=== PATIENT | female | born 1950 | race Caucasian/White ===

== ENCOUNTER 2023-10-21 11:41 | Emergency (ER) | payer MEDICARE, OTHER, SELFPAY ==
[2023-10-21] VITALS (9 sets, daily range): BP systolic 105–128; BP diastolic 57–75; BMI 24.9
[2023-10-21 12:53] LABS: % Basophils 0.6 % (0-2); % Eosinophils 0.2 % (0-6); % Immature Granulocytes 0.3 % (0-0.5); % Lymphocytes 12.7 % (20.5-51.1); % Monocytes 4.6 % (1.7-9.3); % Neutrophils 81.6 % (42.2-75.2); Absolute Lymphocytes 0.8 10^3/uL (1.2-3.4); Absolute Monocytes 0.3 10^3/uL (0.1-0.6); Absolute Neutrophils 5.2 10^3/uL (1.4-6.5); Hematocrit 41.2 % (37.0-47.0); Hemoglobin 14.1 g/dL (12.0-16.0); Mean Corp Hgb Conc. 34.2 g/dL (33.0-37.0); Mean Corpuscular Hgb 31.5 pg (27.0-31.0); Mean Platelet Volume 8.9 fL (7.4-10.4); Nucleated Red Blood Cells % 0 %; Platelet Count 265 10^3/uL (130-400); Red Blood Cell Count 4.48 10^6/uL (4.20-5.40); Red Cell Dist. Width 13.5 % (11.5-14.5); White Blood Cell Count 6.4 10^3/uL (4.8-10.8)
[2023-10-21 13:02] LABS: ALT (SGPT) 36 U/L (0-35); AST (SGOT) 37 U/L (14-36); Albumin 4.7 g/dl (3.5-5.0); Alkaline Phosphatase 42 U/L (38-126); Blood Urea Nitrogen 11 mg/dl (7-17); Calcium 9.4 mg/dl (8.4-10.2); Carbon Dioxide 23 mmol/L (22-30); Chloride 107 mmol/L (98-107); Estimated Creatinine Clearance 60 ml/min; Glucose 114 mg/dl (70-99); Potassium 4.4 mmol/L (3.5-5.1); Sodium 136 mmol/L (135-145); Total Bilirubin 0.8 mg/dl (0.2-1.3); Total Protein 7.3 g/dl (6.3-8.2); eGFR > 60.00
[2023-10-21 13:08] LABS: Troponin I < 0.012 ng/ml
--- NOTE | 2023-10-21 13:10 | ED.GENMED ---
History of Present Illness
<Korina Rao PA-C - Last Filed: 10/21/23 17:55>
General
Chief Complaint: Heart Rate Problem
Source: patient
Exam Limitations: none
Time Seen by Provider: 10/21/23 12:29
Nursing documentation reviewed up to this point in time: agreed with
Travel History
Have you had any contact with someone who has COVID-19?: No
Do you have any symptoms of coronavirus? Fever > 100 degrees, chills, cough, shortness of breath, sore throat, loss of taste or smell, muscle aches, or headache?: No
History of Present Illness
History of Present Illness:
Patient is a 72 y.o female w/ hx HTN, HLD, paroxysmal atrial fibrillation on Eliquis presenting for evaluation of afib. Patient noticed mild chest heaviness and fluttering around 830 last night and her apple watch showed atrial fibrillation. She
spoke with her outboard motors experimental mechanic, Dr. Woods, who recommended to take one of her diltiazem 120mg. This morning, she remained in atrial fibrillation and her cardiology office recommended one more dose of diltiazem. Afib persisted and she was
instructed to go to emergency department. Her rate has been controlled since onset yesterday evening. Patient currently is asymptomatic - denies chest pain, shortness of breath, dizziness, lightheadedness, vision changes, or headache.
She is compliant with eliquis - does not miss doses.
She has a prescription for diltiazem 120mg that she takes only as needed per outboard motors experimental mechanic orders.
Past History
<Korina Rao PA-C - Last Filed: 10/21/23 17:55>
Past History
ED Past Medical History: HTN and Hypercholesterolemia
ED Past Surgical History: Orthopedic (Knee surgery) and Other (cataracts)
Social History
Tobacco: Former smoker
Alcohol: Occasional
Personal:
Living: with family
Phy Exam
<Korina Rao PA-C - Last Filed: 10/21/23 17:55>
Physical Exam
Physical Exam:
General: Well appearing and non-toxic, vital signs reviewed- patient afebrile
HEENT: Atraumatic, normocephalic; pupils equal round reactive to light bilaterally, extraocular muscle intact bilaterally, protecting airway
Neck: appears supple, no jugular venous distention
CV: Regular rate, irregular rhythm, no evidence of cyanosis
Resp: No evidence of respiratory distress, lungs clear no accessory muscle use
Abd: Non-distended
Extremities: No deformities, no evidence of cyanosis or edema
Neuro: alert and oriented to person place time, speech normal, no focal motor deficits, no focal neurologic deficits
Psych: Normal affect
Skin: Intact, no rashes
Course
<Korina Rao PA-C - Last Filed: 10/21/23 17:55>
Orders/Labs/Results
Orders:
Orders
10/21/23 11:52
EKG [Electrocardiogram (*1)] Urgent
Reason for Study: Chest Pain
EKG- Treatment ONCE
10/21/23 12:35
CMP [Comprehensive Metabolic Panel] Urgent
Complete Blood Count/With Diff Urgent
PT/INR [Prothrombin Time] Urgent
PTT Urgent
Troponin I Urgent
10/21/23 13:09
0.9% Sodium Chloride 1000 ml [Nss] 1,000 ml IV BOLUS
Diltiazem HCl [Cardizem] 10 mg IV NOW STA
Abnormal Lab Results
10/21/23
12:35
MCH 31.5 H pg
(27.0-31.0)
Absolute Lymphs (auto) 0.8 L 10^3/uL
(1.2-3.4)
Neutrophils % 81.6 H %
(42.2-75.2)
Lymphocytes % 12.7 L %
(20.5-51.1)
PT 16.0 H Sec
(11.4-14.6)
Glucose 114 H mg/dl
(70-99)
AST 37 H U/L
(14-36)
ALT 36 H U/L
(0-35)
10/21/23 12:35
10/21/23 12:35
Vital Signs
Initial and Last Documented VS:
Initial Vital Signs
Temp Resp BP Pulse Ox
98.3 F 18 128/75 99
10/21/23 11:46 10/21/23 11:46 10/21/23 11:46 10/21/23 11:46
Last Documented Vital Signs
Temp Pulse Resp BP Pulse Ox
98.3 F 73 13 116/67 96
10/21/23 11:46 10/21/23 14:30 10/21/23 14:30 10/21/23 16:09 10/21/23 14:30
<Evan Valenzuela, DO - Last Filed: 10/21/23 13:14>
Orders/Labs/Results
Orders:
Orders
10/21/23 11:52
EKG [Electrocardiogram (*1)] Urgent
Reason for Study: Chest Pain
EKG- Treatment ONCE
10/21/23 12:35
CMP [Comprehensive Metabolic Panel] Urgent
Complete Blood Count/With Diff Urgent
PT/INR [Prothrombin Time] Urgent
PTT Urgent
Troponin I Urgent
10/21/23 13:09
0.9% Sodium Chloride 1000 ml [Nss] 1,000 ml IV BOLUS
Diltiazem HCl [Cardizem] 10 mg IV NOW STA
Abnormal Lab Results
10/21/23
12:35
MCH 31.5 H pg
(27.0-31.0)
Absolute Lymphs (auto) 0.8 L 10^3/uL
(1.2-3.4)
Neutrophils % 81.6 H %
(42.2-75.2)
Lymphocytes % 12.7 L %
(20.5-51.1)
PT 16.0 H Sec
(11.4-14.6)
Glucose 114 H mg/dl
(70-99)
AST 37 H U/L
(14-36)
ALT 36 H U/L
(0-35)
10/21/23 12:35
10/21/23 12:35
Vital Signs
Initial and Last Documented VS:
Initial Vital Signs
Temp Resp BP Pulse Ox
98.3 F 18 128/75 99
10/21/23 11:46 10/21/23 11:46 10/21/23 11:46 10/21/23 11:46
Last Documented Vital Signs
Temp Pulse Resp BP Pulse Ox
98.3 F 73 13 116/67 96
10/21/23 11:46 10/21/23 14:30 10/21/23 14:30 10/21/23 16:09 10/21/23 14:30
<Korina Rao PA-C - Last Filed: 10/21/23 17:55>
MDM/Problems Addressed
Differential Diagnosis Includes:
paroxysmal atrial fibrillation
MDM/Problems Addressed:
Patient is a 72-year-old female with history atrial fibrillation on Eliquis presenting for evaluation of atrial fibrillation. Symptoms started last night when her Apple Watch told her that she was in A-fib. She is currently asymptomatic�no chest
pain, shortness of breath, dizziness, lower leg edema. No prior cardioversion in the past. She is compliant with Eliquis, takes Cardizem as needed per cardiology orders. Patient is hemodynamically stable upon arrival, afebrile. Well-appearing,
rate controlled A-fib. Lungs clear no lower leg edema. EKG on arrival shows rate controlled atrial fibrillation without signs of ischemia. Will get basic labs. Will start IV fluids and give IV bolus of Cardizem. Will reassess
CBC shows no clinically significant abnormalities. CMP without any clinically significant abnormalities. Troponin negative.
Patient remains in rate controlled atrial fibrillation following IV dose of Cardizem. It appears that she has paroxysmal atrial fibrillation and frequently goes in and out of sinus rhythm. She remains asymptomatic and stable emergency department.
No indication for admission. She is stable for discharge with strict return precautions, cardiology follow-up. Stressed importance of compliance with Eliquis. Instructed to take Cardizem daily and follow-up with cardiology. Patient comfortable
this plan. All questions answered.
Chronic conditions affecting care:
Atrial fibrillation, hypertension, hyperlipidemia
Acute Exacerbation and/or Progression of Chronic Illness:
Paroxysmal atrial fibrillation
<Korina Rao PA-C - Last Filed: 10/21/23 17:55>
*Pulse Oximetry
Patient hypoxic: no
*EKG
Interpreted by ED Provider?: Yes
EKG Intrepretation Date: 10/21/23
Interpretation: abnormal
Comparison EKG: changes noted
Heart Rate: 80
Rate: normal
Rhythm: a-fib
[place]: normal axis
Interval: normal interval
QRS Pattern: normal QRS
Ischemia: no ischemia
*Area Mechanic Interpretation
Rate: normal
Interpretation: abnormal
Heart Rate: 88
Rhythm: a-fib
<Evan Valenzuela DO - Last Filed: 10/21/23 13:14>
*Critical Care Note
Total Time (30-74mins, 75-104mins- exclusive of procedures): Not Applicable
ED Attending Note
<Korina Rao PA-C - Last Filed: 10/21/23 17:55>
-
Portions of this chart may have been created with voice recognition software.� Occasional wrong word or��sound alike� substitutions may have occurred due to the inherent limitations of voice recognition software.
<Evan Valenzuela, DO - Last Filed: 10/21/23 13:14>
ED Attending Note
Patient seen and examined by attending physician: Yes
I performed the substantive portion of visit, reviewed & personally made and approve the management plan that is documented in note by myself or SHRAVAN.: Yes
ED Attending Note:
I have seen and evaluated the patient with a [id number] encounter. I have spoken to the advance practicer provider and involved in the medical history, the physical exam, medical decision making.
Evaluation and management service: agree unless noted differently below.
Results interpretation: agree unless noted differently below.
Focused HPI: 72-year-old female presenting for evaluation of A-fib. She has a history of paroxysmal A-fib and is compliant with Eliquis. Patient took her Cardizem prior to arrival. She takes her Cardizem as needed.
Physical exam: Well-appearing and nontoxic. Rate controlled A-fib. No leg edema
Medical Decision Making: Patient is rate controlled and seems symptom-free. Will give dose of IV Cardizem but she is stable to go home in active A-fib is rate controlled. Upon further questioning, patient states her Apple Watch tells her that she
is in A-fib at 20% the time.
Discharge Plan
Departure
Patient Disposition: Home (Routine Discharge)
Date of Disposition: 10/21/23
Time of Disposition: 15:30
Patient with high blood pressure during this ER visit?: No
Condition: Good
Covid-19: Not Applicable
Discharge Problem:
Paroxysmal atrial fibrillation
Instructions: Atrial Fibrillation (DC)
Prescriptions:
New
diltiazem HCl 120 mg capsule,extended release 24 hr
120 mg PO DAILY Qty: 30 0RF
No Action
multivitamin [TAB A JAE] Tablet
1 tab PO DAILY
atorvastatin 40 mg tablet
40 mg PO DAILY
vitamin E 670 mg (1,000 unit) Capsule
670 mg PO HS
pilocarpine HCl 5 mg tablet
5 mg PO HS
calcium carbonate [Calcium 500] 500 mg calcium (1,250 mg) Tablet
500 mg PO DAILY
magnesium 250 mg Tablet
250 mg PO DAILY
lisinopril 40 mg tablet
40 mg PO HS
biotin 2,500 mcg Capsule
2,500 mcg PO DAILY
diltiazem HCl [Cardizem CD] 120 mg capsule,extended release 24hr
120 mg PO DAILY Qty: 30 0RF
Eliquis 5 mg tablet
5 mg PO BID Qty: 20 0RF
Referrals:
Pankaj Ansari PA-C [Family Provider] -
Maty Woods MD [Active] - Follow up in 1 week
Activity Restrictions/Additional Instructions:
-Return to the emergency department with any chest pain, shortness of breath, lightheadedness/fainting, altered mental status, numbness/tingling, vision changes, worsening in current symptoms, or any other concerns
-As discussed - it is very important that you continue to take your Eliquis as directed. You can start taking your diltiazem prescription once daily. It has been sent to your pharmacy.
-Follow-up with your outboard motors experimental mechanic for further evaluation/management of atrial fibrillation
Interventions
Interventions:
*Risk Screen - Suicide Last Done: 10/21/23 12:20
*General Assessment Last Done: 10/21/23 12:20
*Neglect/Abuse Screening Last Done: 10/21/23 12:20
ED- Fall Risk Assessment Last Done: 10/21/23 12:20
*ED COVID-19 Vaccine History Last Done: 10/21/23 11:46
*Nursing Disposition Last Done: 10/21/23 16:09
ED- Cardiac Assessment Last Done: 10/21/23 13:22
ED- Pulmonary Assessment Last Done: 10/21/23 12:20
Discharge Date and Time
Discharge Date/Time: 10/21/23 16:11
[2023-10-21] MEDS: NSS 1000 IV (13:18)
[2023-10-21] MEDS: CARDIZEM 10 MG IV (13:18)
== END 2023-10-21 16:11 | disposition home or self-care (01) ==
LOC: EMR 11:41
PROVIDERS: EMERGENCY PHYSICIAN Student in an Organized Health Care Education/Training Program; FAMILY PHYSICIAN Physician Assistant Medical
DX: I48.0 Paroxysmal atrial fibrillation (principal); I10 Essential (primary) hypertension; E78.5 Hyperlipidemia, unspecified; Z87.891 Personal history of nicotine dependence; Z79.01 Long term (current) use of anticoagulants
CPT/HCPCS: 99284; 96374; 96361; 80053; 84484; 85025; 85610; 85730; 93005

== ENCOUNTER → 2023-11-17 19:15 | Outpatient (REF) | payer MEDICARE, OTHER, SELFPAY | LOC: MRI 19:15 | PROVIDERS: ATTENDING PHYSICIAN Physician Assistant Medical | DX: N28.1 Cyst of kidney, acquired (principal) | CPT/HCPCS: 74183; A9575 ==

== ENCOUNTER → 2023-11-22 10:25 | Outpatient (REF) | payer MEDICARE, OTHER, SELFPAY ==
[2023-11-22 11:24] LABS: % Basophils 0.7 % (0-2); % Eosinophils 2.2 % (0-6); % Immature Granulocytes 0.2 % (0-0.5); % Monocytes 15.4 % (1.7-9.3); % Neutrophils 59.5 % (42.2-75.2); Absolute Eosinophils 0.1 10^3/uL (0-0.7); Absolute Lymphocytes 0.9 10^3/uL (1.2-3.4); Absolute Monocytes 0.6 10^3/uL (0.1-0.6); Absolute Neutrophils 2.4 10^3/uL (1.4-6.5); Hematocrit 40.1 % (37.0-47.0); Hemoglobin 13.2 g/dL (12.0-16.0); Mean Corp Hgb Conc. 32.9 g/dL (33.0-37.0); Mean Corpuscular Volume 94.1 fL (81.0-99.0); Mean Platelet Volume 8.7 fL (7.4-10.4); Nucleated Red Blood Cells % 0 %; Platelet Count 264 10^3/uL (130-400); Red Blood Cell Count 4.26 10^6/uL (4.20-5.40); Red Cell Dist. Width 12.7 % (11.5-14.5); White Blood Cell Count 4.1 10^3/uL (4.8-10.8)
[2023-11-22 11:59] LABS: ALT (SGPT) 29 U/L (0-35); AST (SGOT) 30 U/L (14-36); Albumin 4.6 g/dl (3.5-5.0); Alkaline Phosphatase 35 U/L (38-126); Blood Urea Nitrogen 14 mg/dl (7-17); Carbon Dioxide 30 mmol/L (22-30); Chloride 98 mmol/L (98-107); Glucose 90 mg/dl (70-99); Potassium 4.5 mmol/L (3.5-5.1); Sodium 135 mmol/L (135-145); Total Bilirubin 0.7 mg/dl (0.2-1.3); Total Protein 6.9 g/dl (6.3-8.2); eGFR > 60.00
== END ==
LOC: REG 10:25
PROVIDERS: ATTENDING PHYSICIAN Physician Assistant Medical
DX: N28.1 Cyst of kidney, acquired (principal); M54.9 Dorsalgia, unspecified; K21.9 Gastro-esophageal reflux disease without esophagitis
CPT/HCPCS: 36415; 80053; 85025

== ENCOUNTER → 2024-02-10 11:14 | Outpatient (REF) | payer MEDICARE, OTHER, SELFPAY ==
[2024-02-10 12:29] LABS: % Basophils 0.5 % (0-2); % Eosinophils 1.6 % (0-6); % Immature Granulocytes 0.3 % (0-0.5); % Lymphocytes 17.8 % (20.5-51.1); % Monocytes 9.8 % (1.7-9.3); Absolute Eosinophils 0.1 10^3/uL (0-0.7); Absolute Lymphocytes 1.1 10^3/uL (1.2-3.4); Absolute Monocytes 0.6 10^3/uL (0.1-0.6); Absolute Neutrophils 4.4 10^3/uL (1.4-6.5); Hematocrit 38.3 % (37.0-47.0); Hemoglobin 12.5 g/dL (12.0-16.0); Mean Corp Hgb Conc. 32.6 g/dL (33.0-37.0); Mean Corpuscular Hgb 31.1 pg (27.0-31.0); Mean Corpuscular Volume 95.3 fL (81.0-99.0); Mean Platelet Volume 8.8 fL (7.4-10.4); Nucleated Red Blood Cells % 0 %; Platelet Count 239 10^3/uL (130-400); Red Blood Cell Count 4.02 10^6/uL (4.20-5.40); Red Cell Dist. Width 12.7 % (11.5-14.5); White Blood Cell Count 6.2 10^3/uL (4.8-10.8)
[2024-02-10 12:35] LABS: ALT (SGPT) 30 U/L (0-35); AST (SGOT) 30 U/L (14-36); Albumin 4.4 g/dl (3.5-5.0); Alkaline Phosphatase 33 U/L (38-126); Blood Urea Nitrogen 13 mg/dl (7-17); Calcium 9.6 mg/dl (8.4-10.2); Carbon Dioxide 28 mmol/L (22-30); Chloride 104 mmol/L (98-107); Glucose 88 mg/dl (70-99); HDL Cholesterol 103 mg/dl; LDL Cholesterol, Calculated 67 mg/dl; Potassium 4.4 mmol/L (3.5-5.1); Sodium 138 mmol/L (135-145); Total Bilirubin 0.5 mg/dl (0.2-1.3); Total Cholesterol 179 mg/dl (50-199); Total Protein 6.6 g/dl (6.3-8.2); Triglyceride 47 mg/dl (10-149); Very Low Density Lipoprotein 9 mg/dl (0-30); eGFR > 60.00
[2024-02-10 12:38] LABS: C-Reactive Protein < 5.00 mg/L (0.0-10.00)
[2024-02-10 12:55] LABS: Vitamin D, 25-OH*** 73.8 ng/mL (30-80)
[2024-02-10 13:09] LABS: TSH 1.36 uIU/ml (0.47-4.68)
[2024-02-10 13:11] LABS: Glycohemoglobin (HgbA1c) 5.5 % (4.0-5.6)
== END ==
LOC: REG 11:14
PROVIDERS: ATTENDING PHYSICIAN Internal Medicine Rheumatology; FAMILY PHYSICIAN Physician Assistant Medical
DX: E55.9 Vitamin D deficiency, unspecified (principal); I73.00 Raynaud's syndrome without gangrene; M19.041 Primary osteoarthritis, right hand; M35.00 Sjogren syndrome, unspecified; M72.0 Palmar fascial fibromatosis [Dupuytren]; M81.0 Age-related osteoporosis without current pathological fracture; Z79.899 Other long term (current) drug therapy; R73.01 Impaired fasting glucose; E78.2 Mixed hyperlipidemia; E07.9 Disorder of thyroid, unspecified; Z00.00 Encounter for general adult medical examination without abnormal findings
CPT/HCPCS: 36415; 80053; 80061; 82306; 83036; 84443; 85025; 86140

== ENCOUNTER → 2024-03-21 12:33 | Outpatient (REF) | payer MEDICARE, OTHER, SELFPAY | LOC: HWRCS 12:33 | PROVIDERS: ATTENDING PHYSICIAN Internal Medicine Cardiovascular Disease; FAMILY PHYSICIAN Physician Assistant Medical | DX: I10 Essential (primary) hypertension (principal); I48.0 Paroxysmal atrial fibrillation | CPT/HCPCS: 93306 ==

== ENCOUNTER → 2024-04-16 09:49 | Outpatient (REF) | payer MEDICARE, OTHER, SELFPAY | LOC: RAD 09:49 | PROVIDERS: ATTENDING PHYSICIAN Physician Assistant | DX: G89.29 Other chronic pain (principal); M25.561 Pain in right knee | CPT/HCPCS: 73564 ==

== ENCOUNTER → 2024-04-18 13:31 | Outpatient (REF) | payer MEDICARE, OTHER, SELFPAY | LOC: RAD 13:31 | PROVIDERS: ATTENDING PHYSICIAN Physician Assistant Medical; OTHER PHYSICIAN Internal Medicine Rheumatology | DX: I10 Essential (primary) hypertension (principal) | CPT/HCPCS: 72050 ==

== ENCOUNTER 2024-05-09 22:57 | Inpatient (IN) | payer MEDICARE, OTHER, SELFPAY ==
[2024-05-09] VITALS (23 sets, daily range): BP systolic 99–173; BP diastolic 52–89; BMI 26.2
[2024-05-09] MEDS: NSS 500 IV (09:33)
[2024-05-09 12:30] LABS: ACT-LR - POC 295 Seconds (116-155)
[2024-05-09 12:53] LABS: ACT-LR - POC 369 Seconds (116-155)
[2024-05-09 13:08] LABS: ACT-LR - POC 276 Seconds (116-155)
[2024-05-09 14:14] LABS: ACT-LR - POC 139 Seconds (116-155)
[2024-05-09 14:48] LABS: Hematocrit 29.3 % (37.0-47.0); Hemoglobin 10.2 g/dL (12.0-16.0); Mean Corp Hgb Conc. 34.8 g/dL (33.0-37.0); Mean Corpuscular Hgb 31.1 pg (27.0-31.0); Mean Corpuscular Volume 89.3 fL (81.0-99.0); Mean Platelet Volume 8.6 fL (7.4-10.4); Platelet Count 189 10^3/uL (130-400); Red Blood Cell Count 3.28 10^6/uL (4.20-5.40); Red Cell Dist. Width 12.6 % (11.5-14.5); White Blood Cell Count 10.1 10^3/uL (4.8-10.8)
[2024-05-09 15:09] LABS: ACT-LR - POC > 397 Seconds (116-155)
--- NOTE | 2024-05-09 15:28 | ITS.CL.ABL ---
Addendum entered and electronically signed by Floyd Woods MD 05/24/24 12:20:
Correcting date of service to May 09, 2024
Addendum entered and electronically signed by Floyd Woods MD 05/09/24 18:03:
Note that with continuous intracardiac echocardiogram there is no pericardial effusion noted until after the ablation catheter is removed from the left atrium and not until approximately 10 minutes later during mapping of the left atrium with the
multipolar grid catheter is pericardial effusion first observed and in the interim, there is movement of the decapolar catheter from the right atrium to the SVC for phrenic nerve pacing and then back to the right atrium. This movement of the
decapolar catheter required several attempts to successfully remove the catheter from the right atrium to the SVC and then the right subclavian vein. The pericardial effusion then was first observed and observed to grow from trace to small to
moderate over a short period of time. This is consistent with myocardial injury leading to pericardial effusion occurring sometime after the ablation catheter was removed from the body. Thereafter, traumatic injury likely occurred from the
decapolar catheter and less likely from the sheath or the grid mapping catheter.
Original Note:
Ribbon Cutter - Ablation
Ablation
Procedure Report:
ELECTROPHYSIOLOGIC STUDY AND POSSIBLE ABLATION
DATE: May 09, 2021
Primary Care Provider: Pankaj Ansari PA-C
Primary Animal Caretaker: Dr Maty Woods
INDICATION:
Symptomatic Atrial Fibrillation.
Paroxysmal
HISTORY: See H and P.
Symptomatic AF, poorly controlled with attempted medical therapy
HAS-BLED: 1
Age
CHADSVASc: 3
HTN
Age
F Gender
PRESENTING RHYTHM: SR
HISTORY: See H and P.
Symptomatic AF, poorly controlled with attempted medical therapy.
ANTICOAGULATION: Eliquis
'TIME-OUT': called and confirmed.
SEDATION/ANESTHESIA: provided via the anesthesia department using general anesthesia.
PROCEDURE:
Ultrasound Guidance performed by md was utilized for femoral venous Vascular Access b/l.
A decapolar CS catheter was placed within the CS for mapping and pacing.
The intracardiac ultrasound catheter was positioned in the RA for continuous intracardiac ultrasound imaging.
Heparin bolus and infusion to target ACT at 300 -350 seconds was administered. Transseptal puncture was performed. This entailed advancing a sheath with dilator (13 Fr Agilis) into the superior vena cava and withdrawing both (monitoring
intracardiac ultrasound, fluoroscopy and tip pressure) with the tip oriented toward the atrial septum. The fossa ovalis was engaged (indicated by sudden displacement of the sheath tip as well as tenting of the fossa seen on intracardiac
ultrasound). Transseptal puncture required 1 pass with the Brockenbrough needle. Left atrial catheter position was confirmed by echocardiographic imaging, pressure monitoring (LA mean pressure 6 mm Hg) and fluoroscopy. The sheath was advanced over
the dilator and positioned in the left atrium.
The multipolar mapping catheter was initially positioned through the transseptal sheath for high density mapping.
Geometry and voltage mapping was performed using the Lukkin multipolar grid catheter. Navex was utilized for three-dimensional electroanatomical mapping.
A 3-D map was created using Navex. A 3-D reconstructed CT image was compared to the 3-D Navex map to assist in anatomic evaluation, mapping and ablation.
There are 4 distinct pulmonary veins, LSPV, LIPV, RSPV, RIPV.
Indelsul PFA catheter and system was used for cardiac ablation as part of the Volt CATHY trial. Catheter positioning was guided and confirmed using both I.C.E. and fluoroscopy.
PV isolation approach was used to electrically isolate each PV ostia as specified in the volt trial.
The ablation catheter was withdrawn from the left atrium and the multipolar Davila grid catheter was substituted through the Agilis sheath into the left atrium.
Remapping with the Davila multipolar grid catheter found that all PVPs were eliminated at each vein demonstrating entrance block. Pacing from the multipolar mapping catheter around the the circumference of the ostia was performed at 10 ma and 2.0
msec output to assess for exit block. This demonstrated electrical isolation at each of the pulmonary vein ostia.
Entrance and exit block was demonstrated at each of the pulmonary veins at least 20 minutes after ablation was completed at any particular pulmonary vein.
Additionally, there is electrical isolation across the roof of the left atrium, an area which very closely approximates the antrums of the left superior and right superior pulmonary veins. Roof isolation/superior posterior wall of the left atrium
isolation was not intended and is likely a manifestation of its proximity to the antrums of the left superior and right superior pulmonary veins.
While waiting for the 20-minute post ablation time to elapse at the right sided pulmonary veins, the decapolar catheter was moved to the right subclavian vein where pacing demonstrated capture of the phrenic nerve with diaphragmatic stimulation
unchanged from the preablation state.
While continuing the waiting phase to elapse to allow mapping of the right sided veins post ablation (20 min waiting period), it was noted that there is a trace pericardial effusion around both the right ventricle and the left ventricle, larger
around the right ventricle and right atrium. Continuous intracardiac echocardiogram throughout the case had not previously shown any pericardial effusion and there had been no hemodynamic compromise. Heparin was immediately discontinued. Over the
next several minutes there is growth in the size of the pericardial effusion from trace to mild and then to moderate and while blood pressure was initially stable a drop in blood pressure was then noted her systolic blood pressures had been running
approximately 110 mmHg systolic blood pressures were now 90 to 95 mmHg. At this point 500 cc of normal saline was administered and the time had elapsed to allow completion of mapping/determination of entrance and exit block which was then performed
and this was followed immediately by withdrawal of the left atrial catheter and sheath to the right atrium. 50 mg of protamine IV was administered. Given the increase in size of the pericardial effusion and clinical findings consistent with
tamponade, decision was made to perform pericardiocentesis where a subcostal approach utilizing fluoroscopic as well as echocardiographic imaging was employed to access the pericardial space. A long J wire was advanced and ICE as well as fluoroscopy
confirmed wire course within the pericardial space. Over this wire a dilator was placed and then the 5 fr pig tail drain was positioned. With removal of pericardial fluid, blood pressure improved/normalized. Overall, a total of 510 cc of blood was
removed from the pericardial space with resolution of clinical tamponade and resolution of pericardial effusion from moderate size to trace and this remain at trace as we continue to observe the patient with intracardiac echocardiogram over the next
10 to 15 minutes ensuring stability. The pericardial drain was attached to a Vacutainer for continued vacuum suction. The pericardial drain was secured to the subxiphoid area.
COMPLICATIONS:
Traumatic pericardial tamponade with resolution of tamponade with pericardiocentesis.
RECOMMENDATIONS:
-Maintain pericardial drain to Vacutainer
-If minimal drainage in the morning, will plan to clamp Vacutainer then check echocardiogram a few hours later and if no reaccumulation of pericardial effusion can then pull pericardial drain
-Once pericardial drain is out, we would observe overnight and check echocardiogram the following morning to reassess for stability prior to discharge.
-Once post removal of drain echocardiogram shows stability, we will reinitiate oral anticoagulation with Eliquis 5 mg twice daily (I anticipate this will be Friday 05/11)
-She is having some discomfort related to the pericardial drain, will initiate ibuprofen 600 mg p.o. every 8 hours as well as GI prophylaxis
We will consider maintaining ibuprofen 600 mg p.o. every 8 hours for one week, then taper to 400 mg Q 8 hrs for 4 more weeks, followed by 200 mg Q8 hrs X 4 weeks, then stop
Maintain GI prophylaxis while on ibuprofen.
SUMMARY:
- Mapping and ablation to isolate the PVs using the Indelsul investigational device pulsed field ablation system
- 3-D Electroanatomical Mapping
- Intracardiac Ultrasound
- Pericardiocentesis of traumatic pericardial tamponade
Post ablation, I discussed today's findings and results including the complication of pericardial tamponade with the patient's and once the patient was fully awake I also discussed today's findings and results including the complication of
pericardial tamponade with her.
Copy to:
Pankaj Ansari PA-C
Dr Maty Woods
[2024-05-09] MEDS: TYLENOL 650 MG PO (15:46)
[2024-05-09] MEDS: DILAUDID 0.5 MG IV (15:46)
--- NOTE | 2024-05-09 16:45 | PTCARENOTE ---
Rec'd report from EP lab & rec'd pt AAOx3 w/no c/o SOB, pt c/o intermittent mid-chest/sternum pain which she rated as 2-3/10. Pt reports that is 'tolerable'. Pt w/R groin site w/fig of [address] & dressing C/D/I. No signs or symptoms of bleeding or
hematoma. Pt advised that she is bedrest until 30 mins after the suture is removed which would be clipped at approx 1830, then she may be OOB around 1900. Pt verbalized understanding the plan. Pt's Vs stable w/HR in the 70's & pt in SR on telemetry
monitoring. Pt's pericardial drain in place w/small amt of old shadowing marked on the mid-chest dressing; Draining sanguineous fluid. Pt w/call lees within reach & plan of care ongoing.
[2024-05-09] MEDS: MOTRIN 600 MG PO (17:48)
[2024-05-09] MEDS: NSS IV (22:49)
[2024-05-09] MEDS: NSS 1000 IV (23:02)
[2024-05-09] MEDS: SALAGEN 5 MG PO (23:09)
[2024-05-10] VITALS (20 sets, daily range): BP systolic 86–111; BP diastolic 48–70; BMI 26.2
[2024-05-10] MEDS: MOTRIN 600 MG PO ×3 (00:15→17:00)
--- NOTE | 2024-05-10 01:31 | PTCARENOTE ---
Rec'd pt. at beginning of shift AAOx3, NSR in the 70's on the monitor. Right groin dressing CDI without drainage/hematoma, pedal pulse palpable. Pericardial drain intact with no new drainage from [id number], drain site discomfort well controlled
with Motrin. Pt. able to ambulate with min. assist x 1, voiding clear yellow urine in bathroom without difficulty. BP at 2228 102/54; pt. due for lisinopril. Dr. Maty Woods notified, order to hold dose obtained and give 1L NSS at 85 ml/hr.
Fluids hung, last BP 96/57. Pt. currently sleeping.
[2024-05-10 04:56] LABS: Hematocrit 29.3 % (37.0-47.0); Mean Corp Hgb Conc. 34.1 g/dL (33.0-37.0); Mean Corpuscular Hgb 31.2 pg (27.0-31.0); Mean Corpuscular Volume 91.3 fL (81.0-99.0); Mean Platelet Volume 8.7 fL (7.4-10.4); Platelet Count 219 10^3/uL (130-400); Red Blood Cell Count 3.21 10^6/uL (4.20-5.40); Red Cell Dist. Width 12.8 % (11.5-14.5); White Blood Cell Count 10.3 10^3/uL (4.8-10.8)
[2024-05-10 05:13] LABS: Blood Urea Nitrogen 12 mg/dl (7-17); Calcium 7.8 mg/dl (8.4-10.2); Carbon Dioxide 23 mmol/L (22-30); Chloride 108 mmol/L (98-107); Estimated Creatinine Clearance 61 ml/min; Glucose 111 mg/dl (70-99); Magnesium 2.1 mg/dl (1.6-2.3); Potassium 4.4 mmol/L (3.5-5.1); Sodium 134 mmol/L (135-145); eGFR > 60.00
[2024-05-10] MEDS: PROTONIX 40 MG PO (08:23)
[2024-05-10] MEDS: LIPITOR 40 MG PO (08:23)
--- NOTE | 2024-05-10 08:45 | W.PN.CARDCBS ---
Addendum entered and electronically signed by Floyd Woods MD 05/10/24 15:09:
Patient seen, interviewed and examined by me.
Well-appearing, no acute distress
Regular rate and rhythm with normal S1 and S2, no S3 no S4. There is a grade 1/6 apical holosystolic murmur and no rubs. PMI is normally placed.
Pericardial drain in place to the Vacutainer
Lungs are clear to auscultation bilaterally without wheezes rales or rhonchi.
Abdomen soft nontender nondistended with normoactive bowel sounds
Extremities show trace pretibial edema bilaterally no clubbing or cyanosis.
Neurologic exam is grossly nonfocal.
Agree with advanced practice professionals assessment and plan as noted below.
There has been minimal drainage since she was moved to the floor from the laboratory. No drainage over the past 4 hours have been noted.
She has been having some mild discomfort when she takes a deep breath which is likely related to irritation from the pericardial drain
Telemetry continues to demonstrate sinus rhythm.
Hemoglobin is relatively stable.
-I have clamped the drain at the Vacutainer
-Will check echocardiogram and if there is no significant pericardial effusion we will plan to have the drain removed
-If the drain can be safely removed today we will plan for initiation of oral anticoagulation tomorrow morning followed by repeat echocardiogram tomorrow afternoon and if still no significant effusion she can then be discharged to home
-She will need echocardiogram on Tuesday.
Original Note:
Today's Communication / Plan
-
Clamp pericardial drain this am
Repeat Echo in 2 hours, remove drain if no reaccumulation of effusion
Holding Eliquis and BP meds for now
Impression / Plan
-
Primary Care Provider: Pankaj Ansari PA-C
Primary Instrumental Teacher: Dr Maty Woods
Impression:
Symptomatic paroxysmal Afib
post PFA ablation VOLT trial 05/09/24
c/b pericardial tamponade with pericardiocentesis
HTN
Hyperlipidemia
Sjogren's syndrome
osteoporosis
SUMMARY:
- Mapping and ablation to isolate the PVs using the [employer] device pulsed field ablation system
- 3-D Electroanatomical Mapping
- Intracardiac Ultrasound
- Pericardiocentesis of traumatic pericardial tamponade
Plan:
post ablation c/b pericardial tamponade post pericardiocentesis
pericardial drain in place total output 685cc
Will clamp this am and repeat Echo in 2 hrs if stable plan to remove drain this afternoon
mild hypotension o/n holding lisinopril and Diltazem
tele SR, no ectopy
moderate pericardial pain - continue Motrin 600mg q8hr x 1 week then taper to 400 mg Q 8 hrs for 4 more weeks, followed by 200 mg Q8 hrs X 4 weeks, then stop
Add PPI while on Motrin taper
Holding Eliquis until after drain removal
continue to monitor closely
Progress Note - Instrumental Teacher
Subjective
Date of Service: May 10, 2024
moderate chest/back pain from drain, difficulty taking deep breaths
Objective
Labs:
05/10/24 03:36
05/10/24 03:36
Labs
Hgb 10.0 g/dL (12.0-16.0) L 05/10/24 03:36
Hct 29.3 % (37.0-47.0) L 05/10/24 03:36
Plt Count 219 10^3/uL (130-400) 05/10/24 03:36
Sodium 134 mmol/L (135-145) L 05/10/24 03:36
Potassium 4.4 mmol/L (3.5-5.1) 05/10/24 03:36
BUN 12 mg/dl (7-17) 05/10/24 03:36
Creatinine 0.7 mg/dL (0.6-1.0) 05/10/24 03:36
Glucose 111 mg/dl (70-99) H 05/10/24 03:36
Vital Signs and I&O:
Vital Signs
Temp Pulse Resp BP Pulse Ox
98 F 72 18 95/57 96
05/10/24 06:45 05/10/24 05:00 05/10/24 06:45 05/10/24 05:00 05/10/24 06:45
Vital Signs
Temp Pulse Resp BP Pulse Ox
98 F 72 18 95/57 96
05/10/24 06:45 05/10/24 05:00 05/10/24 06:45 05/10/24 05:00 05/10/24 06:45
Intake & Output
05/08/24 05/09/24 05/10/24 05/11/24
06:59 06:59 06:59 06:59
Intake Total 4300 / 4300
Output Total 685 / 685
Balance 3615 / 3615
Physical Exam
Physical Exam
NAD, AOX3
S1, S2, RRR
diminished b/l bases and fine crackles
SNTND bsx4
R fem site c/d/i soft, no HT
Pericardial drain with dark red drainage, site stable
--- NOTE | 2024-05-10 09:49 | CM ---
Reviewed chart. Met with Mrs. Lopez to review discharge plans. She states prior to admission she resides with her spouse in a two story home with two steps to enter. She states she has a full flight of steps to get to bedroom/full bathroom. She
states he has a powder room on the first floor. She states prior to admission she was independent with ambulation and adls. She states she does not have any DME in the home. She states she has a prescription plan and uses [facility]. Medical
work-up in progress. The discharge plan is to return home with her spouse when medically stable.
[2024-05-10] MEDS: ZOFRAN 4 MG IV (12:00)
--- NOTE | 2024-05-10 12:18 | W.PN.UPDATE ---
Update Note
Progress Note Update
Procedure note:
f/u Echo after 2 hours clamped shows trace effusion
pericardial drain removed without difficulty, dry dressing placed (Dr. Mena at bedside)
will repeat echo in am to assess effusion prior to restarting OAC
continue to monitor closely
--- NOTE | 2024-05-10 12:19 | W.PN.UPDATE ---
Update Note
Progress Note Update
Reviewed echocardiogram demonstrating no further pericardial effusion. There was no drainage overnight from the pericardial drain. The pericardial drain was placed to clamp and removed with Valsalva at the bedside after superficial suture was cut.
Patient tolerated the removal well. Plan is for initiation of Eliquis on Tuesday a.m. and an echocardiogram Tuesday evening to clarify discharge planning. There likely will be discharged Tuesday if she is stable. Follow-up echo in the office on
Tuesday.
[2024-05-10] MEDS: MAALOX 30 ML PO (12:33)
--- NOTE | 2024-05-10 12:41 | PTCARENOTE ---
Pt c/o nausea and indigestion. Medicated with Zofran 4 mg IV as ordered, after approx 1/2 hr, nausea relieved. Med with Maalox, as ordered, for indigestion.
[2024-05-10] MEDS: TYLENOL 650 MG PO (14:33)
--- NOTE | 2024-05-10 14:39 | PTCARENOTE ---
Pt c/o mild discomfort at previous pericardial drain site, Rated 1-2/10, med with Tylenol 650 mg po as ordered.
--- NOTE | 2024-05-10 15:43 | PTCARENOTE ---
Pt reports relief from pain after given Tylenol.
--- NOTE | 2024-05-10 19:20 | PTCARENOTE ---
Pt. received from previous shift. Pt. seen sitting upright in bed with no pain at this time. Stating she feels 'better than last night'. VS WNL. Tele reading NSR with PVCs. No complaints at this time. Continuing to monitor pt.
[2024-05-10] MEDS: SALAGEN 5 MG PO (22:06)
[2024-05-10] MEDS: PERCOCET 5/325 2 TABLET PO (22:06)
[2024-05-11] MEDS: MOTRIN PO (00:03)
[2024-05-11 03:33] VITALS: BP 98/55
[2024-05-11 06:56] VITALS: BP 116/62
[2024-05-11 08:14] LABS: Hematocrit 28.4 % (37.0-47.0); Hemoglobin 9.8 g/dL (12.0-16.0); Mean Corp Hgb Conc. 34.5 g/dL (33.0-37.0); Mean Corpuscular Hgb 31.8 pg (27.0-31.0); Mean Corpuscular Volume 92.2 fL (81.0-99.0); Mean Platelet Volume 8.7 fL (7.4-10.4); Platelet Count 183 10^3/uL (130-400); Red Blood Cell Count 3.08 10^6/uL (4.20-5.40); Red Cell Dist. Width 13.1 % (11.5-14.5); White Blood Cell Count 7.9 10^3/uL (4.8-10.8)
--- NOTE | 2024-05-11 08:30 | PTCARENOTE ---
pt received from previous RN, oriented, in bed. SR on the monitor, HR 70-90s. palpable pulses. RA. pt ambulates independently. voids. R groin c/d/i. pericardial site old drainage, dressing changed by Bouchra Barnes NP. PIV x2. see worklist for VS, I&O,
and assessment.
--- NOTE | 2024-05-11 08:30 | W.PN.CARDCBS ---
Addendum entered and electronically signed by LINDY Ortiz 05/11/24 12:28:
Hbg dropped from 12.7 to 9.8 today d/t acute blood loss from pericardial effusion
Addendum entered and electronically signed by Brandon Mena MD 05/11/24 10:29:
patient seen and examined
agree with LATEX DIPPER note and assessment
agree with LATEX DIPPER plan
feels much better after drain removal pain 10/29
BP improving
Exam:
as per LATEX DIPPER note
Impression:
Symptomatic paroxysmal Afib
post PFA ablation VOLT trial 05/09/24
c/b pericardial tamponade with pericardiocentesis
HTN
Hyperlipidemia
Sjogren's syndrome
osteoporosis
SUMMARY:
- Mapping and ablation to isolate the PVs using the [employer] device pulsed field ablation system
- 3-D Electroanatomical Mapping
- Intracardiac Ultrasound
- Pericardiocentesis of traumatic pericardial tamponade
Plan:
feels much better today, can take a deep breath
tele one brief episode of PAT last evening, asymptomatic
pericardial drain pulled 05/10 and f/u echo trace effusion
Will resume Eliquis this am and repeat Echo this afternoon
If stable will have f/u echo on Tuesday
hypotension improving continue to hold lisinopril, resume Diltazem this afternoon if bp stable
pericardial pain much improved after drain removal - continue Motrin taper
Add PPI while on Motrin taper
oob ambulate, C&DB
poss home later today or tomorrow
Original Note:
Today's Communication / Plan
-
Resume Eliquis, f/u Echo this afternoon
Repeat Echo Tuesday
hold lisinopril, restart diltiazem this afternoon if bp allows
poss home later today or tomorrow
oob ambulate, C&DB
Impression / Plan
-
Primary Care Provider: Pankaj Ansari PA-C
Primary Gullet Slitter: Dr Maty Woods
Impression:
Symptomatic paroxysmal Afib
post PFA ablation VOLT trial 05/09/24
c/b pericardial tamponade with pericardiocentesis
HTN
Hyperlipidemia
Sjogren's syndrome
osteoporosis
SUMMARY:
- Mapping and ablation to isolate the PVs using the [employer] investigational device pulsed field ablation system
- 3-D Electroanatomical Mapping
- Intracardiac Ultrasound
- Pericardiocentesis of traumatic pericardial tamponade
Plan:
feels much better today, can take a deep breath
tele one brief episode of PAT last evening, asymptomatic
pericardial drain pulled 05/10 and f/u echo trace effusion
Will resume Eliquis this am and repeat Echo this afternoon
If stable will have f/u echo on Tuesday
hypotension improving continue to hold lisinopril, resume Diltazem this afternoon if bp stable
pericardial pain much improved after drain removal - continue Motrin taper
Add PPI while on Motrin taper
oob ambulate, C&DB
poss home later today or tomorrow
Progress Note - Gullet Slitter
Subjective
Date of Service: May 11, 2024
no cp, sob
Objective
Labs:
05/11/24 07:49
Labs
Hgb 9.8 g/dL (12.0-16.0) L 05/11/24 07:49
Hct 28.4 % (37.0-47.0) L 05/11/24 07:49
Plt Count 183 10^3/uL (130-400) 05/11/24 07:49
Sodium 134 mmol/L (135-145) L 05/10/24 03:36
Potassium 4.4 mmol/L (3.5-5.1) 05/10/24 03:36
BUN 12 mg/dl (7-17) 08/22/24 03:36
Creatinine 0.7 mg/dL (0.6-1.0) 05/10/24 03:36
Glucose 111 mg/dl (70-99) H 05/10/24 03:36
Vital Signs and I&O:
Vital Signs
Temp Pulse Resp BP Pulse Ox
98.7 F 78 16 116/62 93
05/11/24 06:56 05/11/24 07:00 05/11/24 06:56 05/11/24 06:56 05/11/24 06:56
Vital Signs
Temp Pulse Resp BP Pulse Ox
98.7 F 78 16 116/62 93
05/11/24 06:56 05/11/24 07:00 05/11/24 06:56 05/11/24 06:56 05/11/24 06:56
Intake & Output
05/09/24 05/10/24 05/11/24 05/12/24
06:59 06:59 06:59 06:59
Intake Total 4300 / 4300 550 / 550
Output Total 685 / 685 0 / 0
Balance 3615 / 3615 550 / 550
Physical Exam
Physical Exam
NAD, AOX3
S1, s2, RRR
fine bibasilar rales
SNTND bsx4
R fem site c/d/i, soft
subxiphoid dressing saturated with serous drainage, dressing changed
[2024-05-11 08:49] LABS: Blood Urea Nitrogen 14 mg/dl (7-17); Calcium 7.9 mg/dl (8.4-10.2); Carbon Dioxide 23 mmol/L (22-30); Chloride 105 mmol/L (98-107); Estimated Creatinine Clearance 61 ml/min; Glucose 105 mg/dl (70-99); Potassium 4.2 mmol/L (3.5-5.1); Sodium 136 mmol/L (135-145); eGFR > 60.00
[2024-05-11] MEDS: PROTONIX 40 MG PO (08:53)
[2024-05-11] MEDS: LIPITOR 40 MG PO (08:53)
[2024-05-11] MEDS: ELIQUIS 5 MG PO (08:54)
[2024-05-11] MEDS: MOTRIN 600 MG PO (08:54)
--- NOTE | 2024-05-11 10:53 | PN.CDI ---
CDI
- -
CDI:
Physician Documentation Request
Admit Date: 05/09/24 22:57
Dear Gabriela Barnes,
Patient was admitted for PVI due to PAF.
During procedure patient underwent pericardiocentesis which 510 cc of blood was removed.
Laboratory Tests
05/03/24 05/09/24 05/10/24
13:06 14:36 03:36
Hgb 12.7 10.2 L 10.0 L
05/11/24
07:49
Hgb 9.8 L
Based on the above, could you please provide a diagnosis that supports the above lab abnormalities and additional evaluation/ monitoring:
Acute blood loss anemia
Anemia , other - please specify
Abnormal lab value clinically insignificant
Other
Use of terms such as suspected, likely, concern for, or probable (associated with a specific diagnosis that is being evaluated, monitored, or treated as if it exists) are acceptable and can be coded in the inpatient setting, when documented at the
time of discharge.
Thank you,
Selina Pelaez RN, BSN
CDI Specialist
tiger text
Please use your independent medical judgment in providing your response.
--- NOTE | 2024-05-11 11:00 | CM ---
Reviewed chart. Met with Mrs. Lopez to review discharge plans. She states she is feeling better and is hoping to go home soon. Prior to admission she resides with her spouse in a two story home with two steps to enter. She has a powder room on the
first floor. Prior to admission she was independent with ambulation and adls. She does not have any DME in the home. She states she has a prescription plan and uses [facility]. Medical work-up in progress. The discharge plan is to return
home with her spouse when medically stable.
[2024-05-11 11:10] VITALS: BP 122/64
--- NOTE | 2024-05-11 13:05 | W.DS.TRANS ---
DC Summary - Tile Picker
-
Discharge Instructions:
Sleep Apnea Risk Low
Discharge Diagnosis/Procedures Afib post ablation, pericardiocentesis
Diet Low Cholesterol
Driving Restrictions No driving for 24 hours
Others Tests Follow up Echo on Tuesday @10:30 at [facility]
Instructions:
Stand-Alone Forms: DC Instructions- Cath/EP Lab
Changes to Home Medications: Yes
Discharge Medications:
DC Medications w/original date entered in [place]
apixaban 5 mg tablet (Eliquis) 5 mg PO BID cardiac issues #20 tabs 11/11/22
atorvastatin 40 mg tablet 40 mg PO DAILY 11/11/22
lisinopril 40 mg tablet 40 mg PO HS 11/11/22
magnesium 250 mg tablet 400 mg PO HS 11/11/22
multivitamin 1 tab PO DAILY 11/11/22
pilocarpine HCl 5 mg tablet 5 mg PO HS 11/11/22
vitamin E 670 mg (1,000 unit) capsule 24,000 mg PO HS 11/11/22
diltiazem HCl 120 mg capsule,24 hr,extended release 120 mg PO DAILY #30 caps 10/21/23
Vitamin D3 1 dose PO DIRECTED 05/01/24
denosumab 60 mg/mL subcutaneous syringe (Prolia) 60 mg SC [id number] 05/01/24
zolpidem 5 mg tablet 5 mg PO HS PRN sleep 05/01/24
calcium carbonate 600 mg-vitamin D3 20 mcg (800 unit) chewable tablet (Caltrate 600 plus D) 1 tab PO DAILY 05/09/24
pantoprazole 40 mg tablet,delayed release (Protonix) 40 mg PO DAILY #30 tabs 05/11/24
Home Medication Changes
new to protonix x 30 d
Pending Results: No
--- NOTE | 2024-05-11 13:19 | W.PN.UPDATE ---
Update Note
Progress Note Update
Reviewed echocardiogram from today demonstrating trace anterior pericardial effusion without hemodynamic compromise. The patient has markedly improved inspiratory chest pressure and will have a short taper of Motrin therapy. She is scheduled in
the office for echocardiogram early next week and will continue Eliquis and diltiazem only at discharge with perhaps reinitiation of lisinopril as an outpatient.
--- NOTE | 2024-05-11 14:38 | PTCARENOTE ---
pt discharged home w/ . discharge instructions reviewed w/ patient and . home meds reviewed. pt aware to hold taking lisinopril and to taper Motrin. R groin dressing removed. tele and IVs dc'd. pt dressed self.
== END 2024-05-11 14:52 | disposition home or self-care (01) | DRG 274 ==
LOC: IVU 22:57
PROVIDERS: Nurse Practitioner Adult Health; ADMITTING PHYSICIAN Internal Medicine Cardiovascular Disease; FAMILY PHYSICIAN Physician Assistant Medical
PROC: 0W9D3ZZ Drainage of Pericardial Cavity, Percutaneous Approach (ICD-10-PCS; 2024-05-09)
PROC: 4A023FZ Measurement of Cardiac Rhythm, Percutaneous Approach (ICD-10-PCS; 2024-05-09)
PROC: 02583ZF Destruction of Conduction Mechanism using Irreversible Electroporation, Percutaneous Approach (ICD-10-PCS; 2024-05-09)
PROC: 02K83ZZ Map Conduction Mechanism, Percutaneous Approach (ICD-10-PCS; 2024-05-09)
PROC: 4A0234Z Measurement of Cardiac Electrical Activity, Percutaneous Approach (ICD-10-PCS; 2024-05-09)
DX: I97.89 Other postprocedural complications and disorders of the circulatory system, not elsewhere classified (principal); Z00.6 Encounter for examination for normal comparison and control in clinical research program; D62 Acute posthemorrhagic anemia; I5A Non-ischemic myocardial injury (non-traumatic); I31.4 Cardiac tamponade; I31.39 Other pericardial effusion (noninflammatory); I48.0 Paroxysmal atrial fibrillation; I11.9 Hypertensive heart disease without heart failure; G47.00 Insomnia, unspecified; E78.5 Hyperlipidemia, unspecified; M81.0 Age-related osteoporosis without current pathological fracture; M35.00 Sjogren syndrome, unspecified; Y84.0 Cardiac catheterization as the cause of abnormal reaction of the patient, or of later complication, without mention of misadventure at the time of the procedure; Z79.01 Long term (current) use of anticoagulants; Z79.899 Other long term (current) drug therapy; Z82.49 Family history of ischemic heart disease and other diseases of the circulatory system
CPT/HCPCS: 93308; 33016; 80048; 83735; 85027; 85347; 86900; 86901; 93005; 93656; C1730; C1732; C1766; C1769; C1892; C1894; Q9967

== ENCOUNTER → 2024-05-14 10:08 | Outpatient (REF) | payer MEDICARE, OTHER, SELFPAY | LOC: RCS 10:08 | PROVIDERS: ATTENDING PHYSICIAN Internal Medicine Cardiovascular Disease; FAMILY PHYSICIAN Physician Assistant Medical | DX: I31.39 Other pericardial effusion (noninflammatory) (principal) | CPT/HCPCS: 93308 ==

== ENCOUNTER 2024-05-14 17:51 | Inpatient (IN) | payer MEDICARE, OTHER, SELFPAY ==
[2024-05-14 14:21] VITALS: BP 164/103
[2024-05-14 14:52] LABS: % Basophils 0.6 % (0-2); % Eosinophils 2.5 % (0-6); % Immature Granulocytes 0.3 % (0-0.5); % Lymphocytes 16.7 % (20.5-51.1); % Monocytes 14.6 % (1.7-9.3); % Neutrophils 65.3 % (42.2-75.2); Absolute Eosinophils 0.2 10^3/uL (0-0.7); Absolute Lymphocytes 1.1 10^3/uL (1.2-3.4); Absolute Monocytes 0.9 10^3/uL (0.1-0.6); Absolute Neutrophils 4.2 10^3/uL (1.4-6.5); Hematocrit 32.3 % (37.0-47.0); Hemoglobin 11.4 g/dL (12.0-16.0); Mean Corp Hgb Conc. 35.3 g/dL (33.0-37.0); Mean Corpuscular Hgb 31.3 pg (27.0-31.0); Mean Corpuscular Volume 88.7 fL (81.0-99.0); Mean Platelet Volume 8.1 fL (7.4-10.4); Nucleated Red Blood Cells % 0 %; Platelet Count 300 10^3/uL (130-400); Red Blood Cell Count 3.64 10^6/uL (4.20-5.40); Red Cell Dist. Width 12.3 % (11.5-14.5); White Blood Cell Count 6.5 10^3/uL (4.8-10.8)
[2024-05-14 15:11] LABS: ALT (SGPT) 89 U/L (0-35); AST (SGOT) 51 U/L (14-36); Albumin 4.1 g/dl (3.5-5.0); Alkaline Phosphatase 78 U/L (38-126); Blood Urea Nitrogen 10 mg/dl (7-17); Calcium 10.1 mg/dl (8.4-10.2); Carbon Dioxide 26 mmol/L (22-30); Chloride 105 mmol/L (98-107); Glucose 113 mg/dl (70-99); Potassium 3.9 mmol/L (3.5-5.1); Sodium 141 mmol/L (135-145); Total Bilirubin 0.8 mg/dl (0.2-1.3); Total Protein 6.3 g/dl (6.3-8.2); eGFR > 60.00
--- NOTE | 2024-05-14 15:16 | ED.GENMED ---
History of Present Illness
General
Chief Complaint: Breathing Problem
Time Seen by Provider: 05/14/24 15:06
History of Present Illness
History of Present Illness:
73-year-old female with history of paroxysmal A-fib presents to the emergency department for evaluation of shortness of breath and rapid heart rate beginning this morning. On May 09 she underwent pulsed field ablation by Dr. Woods at this
hospital, procedure was complicated by pericardial effusion with cardiac tamponade requiring pericardiocentesis. Serial echocardiograms showed no recollection of the pericardial effusion and she was discharged 3 days ago. She restarted her Eliquis
in the morning on Tuesday after discharge. She noted this morning that she was more short of breath and when she left the hospital and her heart rate was markedly elevated. Denies any leg swelling. She also notes a 10 pound weight gain since
being admitted to the hospital
Past History
Past History
ED Past Medical History: HTN and Hypercholesterolemia
ED Past Surgical History: Orthopedic (Knee surgery) and Other (cataracts)
Social History
Tobacco: Former smoker
Alcohol: Occasional
Personal:
Living: with family
Review of Systems
Review of Systems
Allergies reviewed?: Yes
All Other Systems: ROS reviewed and negative except as documented in HPI and ROS
Phy Exam
Physical Exam
Physical Exam:
GEN: Well appearing, NAD, WDWN
Eyes: PERRLA, EOMs intact, no scleral icterus
HENT: NCAT, oral mucosa moist
Lungs: Normal respiratory effort, diminished bibasilar breath sounds with faint crackles
Cardiac: Markedly tachycardic and irregular, no obvious murmur
Abdomen: S, NT, ND, NABS, no masses or hepatosplenomegaly
Neuro: AO x 3
MSK: No gross deformity or ecchymosis. No edema. No digital clubbing
Skin: No rashes, petechiae. Normal color, no pallor or jaundice.
Psych: Calm, cooperative, proper hygiene
Scores
Heart Failure Risk
Heart Failure Risk Score: Yes
History of Stroke or TIA: No
History of intubation for respiratory distress: No
Heart rate on ED arrival >/= 110: No
SaO2 <90% on arrival on room air: No
HR >/=110 during 3min walk test (or too ill to perform test): Yes
ECG has acute ischemic changes: Yes
Urea >/=12mmol/L (BUN 33.6mg/dL): No
Serum CO2>/=35mmol/L: No
Troponin I or T elevated to CT Level (0.4mg/dL): Yes
NT-proBNP >/=5,000ng/L (5,000pg/ml): Yes
HF Risk Score: 7
Admission Status: VERY HIGH RISK 69.8% Consider admission to hospital
Course
Orders/Labs/Results
Orders:
Orders
05/14/24 14:24
Electrocardiogram (*1) Urgent
Reason for Study: Shortness of Breath
EKG- Treatment ONCE
05/14/24 14:25
Electrocardiogram (*1) Urgent
Reason for Study: Chest Pain
EKG- Treatment ONCE
05/14/24 14:37
Complete Blood Count/With Diff Urgent
Comprehensive Metabolic Panel Urgent
NT-proBNP Urgent
Comment: ADD ON
Troponin I Urgent
05/14/24 Dinner
Cholesterol Lowering
At Your Request: Full Participation
Cholesterol Lowering: Sodium, 2 Gram
05/14/24 15:16
Add On- LAB Urgent
Tests Added?: BNP
CR Chest - 2 Views Urgent
Comment:
Reason For Exam: SOB
05/14/24 16:13
Propofol [Diprivan] 20 ml .ROUTE .STK-MED
05/14/24 17:07
Furosemide [Lasix] 40 mg IV ONCE ONE
Potassium Chloride [KCl] 20 meq PO NOW STA
05/14/24 17:26
Admit/Transfer Patient As Directed
Co-Sign Provider:
Level of Care: Inpatient admission
Assign to:: Telemetry
Physician / Group: evaristo
Diagnosis: afib with rvr
Reason for Telemetry: Pulmonary Edema
Date to Stop Telemetry: 05/17/24
Time to Stop Telemetry: 11:00
Reason for Hospitalization: afib rvr
Expected length of stay greater than two midnights?: Yes
ELOS- Estimated Length of Stay in days: 2
I certify the patient meets the requirements for IP care: Yes
PRN Pain Medication Management As Directed
May give lesser potent ordered pain med per pt: Yes
preference::
Protocol:: Medication orders for pain may be administered in a
manner that supports deferring to patient preference
when the pt is:
- Requesting an ordered lesser potent pain medication.
Least to most potent pain medications are defined
as: acetaminophen < NSAID < tramadol < opioids
(morphine, oxycodone, hydromorphone).
- Requesting a lesser dose of the same medication IF
ORDERED.
- Requesting a less intrusive route of administration
if both routes are prescribed by the provider (PO <
IV).
05/14/24 17:27
Code Status As Directed
Resuscitation Status: Full Code
05/14/24 18:27
Celecoxib [Celebrex] 200 mg PO DAILYPRN PRN
Famotidine [Pepcid] 20 mg PO BIDPRN PRN
Ibuprofen [Motrin] 200 mg PO Q6HPRN PRN
Metoprolol [Lopressor] 5 mg IV Q6HPRN PRN
Pantoprazole [Protonix] 40 mg PO DAILYPRN PRN
Polyethylene Glycol Powder [Miralax] 17 grams PO DAILYPRN PRN
Zolpidem Tartrate [Ambien] 5 mg PO HSPRN PRN
05/14/24 18:27
CARDIOLOGY CONSULT Routine
Consulting Provider: Floyd Woods
Was physician already notified: Yes
HF DIETARY CONSULT Routine
HF EDUCATOR CONSULT Routine
Comment:
VTE Contraindication Routine
VTE Mechanical Device Contraindication: Medical Contraindication
Pharmocologic Contraindication: Medical Contraindication
Activity As Directed
Activity Level: As Tolerated
Intake/ Output As Directed
Frequency: q12h
Patient Education As Directed
Type: CHF folder
Comment: give on admission. Document in Interdisciplinary Education record
Sleep Apnea Assessment by RN As Directed
Comment:
Physician Instructions:
Vital Signs As Directed
Frequency: Other
Additional Instructions:: Q12 or per unit guidelines if more frequent.
Weight As Directed
Frequency: Daily
Type of Scale: Standing Scale
Comment: Daily morning weight. If unable to stand, use balanced bed scale.
Weight As Directed
Frequency: Once
Type of Scale: Standing Scale
Comment: Upon Admission. If unable to stand, use balanced bed scale.
Pulse Ox/cont/shift [RESP] Routine
Quantity: 1
Special Instructions: Daily pulse oximetry at rest. If greater than 92% at rest also obtain pulse oximetry
while ambulating as tolerated.
05/14/24 19:58
Troponin I Q6H
Comment: at admission & every 6 hours x 2 (3 total), ECG to be done with each level
05/14/24 20:00
Apixaban [Eliquis] 5 mg PO BID
cyclosporine [Cequa] See Dose Instructions BOTH EYES BID
05/14/24 22:00
Calcium Carbonate/Vitamin D3 [Oscal 500 + D] 500 mg PO HS
Lisinopril [Zestril] 40 mg PO HS
Magnesium l-Lactate [Mag-Tab Sr] 84 mg PO HS
Pilocarpine Non-Formulary [Salagen] 5 mg PO HS
vitamin E 2,400 mg PO HS
05/15/24 00:27
Troponin I Q6H
Comment: at admission & every 6 hours x 2 (3 total), ECG to be done with each level
05/15/24 Breakfast
NPO
Allow oral meds: Yes
Allow clear liquids: Sips of Clears
Complete Blood Count/With Diff IN AM
Comprehensive Metabolic Panel IN AM
05/15/24 06:27
Troponin I Q6H
Comment: at admission & every 6 hours x 2 (3 total), ECG to be done with each level
05/15/24 08:00
Atorvastatin [Lipitor] 40 mg PO DAILY
Diltiazem Extended Release [Cardizem Cd] 120 mg PO DAILY
Furosemide [Lasix] 40 mg IV DAILY
Multivitamin [Theragran] 1 tablet PO DAILY
05/16/24 08:00
Cholecalciferol (Vitamin D3) [VITAMIN D3 (cholecalciferol)] 50 mcg PO MoWeFr@0800
05/17/24 11:00
DC Protocol for Telemetry ONCE
Abnormal Lab Results
05/14/24
14:37
RBC 3.64 L 10^6/uL
(4.20-5.40)
Hgb 11.4 L g/dL
(12.0-16.0)
Hct 32.3 L %
(37.0-47.0)
MCH 31.3 H pg
(27.0-31.0)
Absolute Lymphs (auto) 1.1 L 10^3/uL
(1.2-3.4)
Absolute Monos (auto) 0.9 H 10^3/uL
(0.1-0.6)
Lymphocytes % 16.7 L %
(20.5-51.1)
Monocytes % 14.6 H %
(1.7-9.3)
Glucose 113 H mg/dl
(70-99)
AST 51 H U/L
(14-36)
ALT 89 H U/L
(0-35)
Troponin I 0.312 H* ng/ml
05/14/24 14:37
05/14/24 14:37
Vital Signs
Initial and Last Documented VS:
Initial Vital Signs
Temp Pulse Resp BP Pulse Ox
98.4 F 113 22 164/103 96
05/14/24 14:21 05/14/24 14:21 05/14/24 14:21 05/14/24 14:21 05/14/24 14:21
Last Documented Vital Signs
Temp Pulse Resp BP Pulse Ox
98.4 F 130 20 167/103 95
05/14/24 19:00 05/14/24 19:00 05/14/24 19:00 05/14/24 19:00 05/14/24 19:00
MDM/Problems Addressed
MDM/Problems Addressed:
After discussion with on-call cardiology and electrophysiology the decision was made to admit the patient for diuresis due to fluid overload prior to cardioversion. Patient was consented initially for cardioversion however after detailed discussion
we felt it was more beneficial to diurese the patient as likelihood for cardioversion failure is higher in the setting of acute CHF/hypervolemia. Will be admitted to the hospitalist service for further IV diuresis
Comment
Comment:
Initial EKG independently interpreted by me shows rapid atrial fibrillation at a rate of [address]ressions Which are comparable to A-fib EKG from October 2022
*Critical Care Note
Total Time (30-74mins, 75-104mins- exclusive of procedures): Not Applicable
ED Attending Note
-
Portions of this chart may have been created with voice recognition software.� Occasional wrong word or��sound alike� substitutions may have occurred due to the inherent limitations of voice recognition software.
Discharge Plan
Departure
Patient Disposition: Admit
Date of Disposition: 05/14/24
Time of Disposition: 17:09
Admit to: Telemetry
Presentation/result/management discussed w/ accepting MD/DO: Hospitalist
Discharge Problem:
Atrial fibrillation with RVR, Fluid overload
Interventions
Interventions:
*Risk Screen - Suicide Last Done: 05/14/24 14:21
*General Assessment Last Done: 05/14/24 14:21
*Neglect/Abuse Screening Last Done: 05/14/24 14:21
ED- Fall Risk Assessment Last Done: 05/14/24 15:25
*ED COVID-19 Vaccine History Last Done: 05/14/24 15:23
*Nursing Disposition Last Done: 05/14/24 18:26
ED- Cardiac Assessment Last Done: 05/14/24 15:25
ED- Pulmonary Assessment Last Done: 05/14/24 15:25
Discharge Date and Time
Discharge Date/Time: 05/14/24 18:26
[2024-05-14 15:17] LABS: Troponin I 0.312 ng/ml
[2024-05-14 15:23] VITALS: BMI 26.9
[2024-05-14 16:00] VITALS: BP 158/106
[2024-05-14 16:57] LABS: NT-proBNP 1150 pg/ml
[2024-05-14 17:01] VITALS: BP 148/96
[2024-05-14] MEDS: LASIX 40 MG IV (17:25)
[2024-05-14] MEDS: KCL 20 MEQ PO (17:25)
--- NOTE | 2024-05-14 17:34 | HPS.HSE ---
Family Physician
-
Family Physician: Pankaj Ansari PA-C
Chief Complaint
-
shortness of breath
History of Present Illness
73-year-old female past medical history of paroxysmal atrial fibrillation status post ablation, pericardial tamponade status post pericardiocentesis, hypertension, hypercholesterolemia, Sjogren syndrome, osteoporosis, presenting to the emergency
room for shortness of breath and rapid heart rate starting this morning. She had some chest tightness but denies any chest pain. She states that her blood pressure was elevated was told to take a dose of Lasix by her database administration project manager.
On May 09 she underwent pulsed field ablation by Dr. Woods which was complicated by pericardial effusion and cardiac, not requiring pericardiocentesis. He was discharged 3 days ago. She was restarted on Eliquis 2 days ago and noted this
morning she was short of breath and her heart rate was elevated. She denies any lower extremity. She has gained 10 pounds since being admitted to the hospital. She has some mild nonproductive cough. Denies any swelling.
She drinks alcohol few times a week. Denies smoking.
Medical History
Past Medical History
Past Medical History: Reports Other (paroxysmal atrial fibrillation status post ablation, pericardial tamponade status post pericardiocentesis, hypertension, hypercholesterolemia, Sjogren syndrome, osteoporosis,)
Past Surgical History: Reports Other (knee reconstruction, Breast biopsy.)
Social History
Tobacco: Non-smoker
Alcohol: Occasional
Drug: None
Family History
Family History: Not pertinent
Allergies / Home Medications
Allergies reflects when Allergies were last updated in [email or web address].
Home Medications with original date entered in [email or web address]
Allergy/Medication List:
Allergies
Allergy/AdvReac Type Severity Reaction Status Date / Time
doxycycline Allergy Rash Verified 05/14/24 14:19
Home Medications
apixaban 5 mg tablet (Eliquis) 5 mg PO BID cardiac issues #20 tabs 11/11/22
atorvastatin 40 mg tablet 40 mg PO DAILY 11/11/22
lisinopril 40 mg tablet 40 mg PO HS 11/11/22
pilocarpine HCl 5 mg tablet 5 mg PO HS 11/11/22
vitamin E 670 mg (1,000 unit) capsule 2,400 mg PO HS 11/11/22
diltiazem HCl 120 mg capsule,24 hr,extended release 120 mg PO DAILY #30 caps 10/21/23
denosumab 60 mg/mL subcutaneous syringe (Prolia) 60 mg SC [id number] 05/01/24
zolpidem 5 mg tablet 5 mg PO HSPRN PRN sleep 05/01/24
calcium carbonate 600 mg-vitamin D3 20 mcg (800 unit) chewable tablet (Caltrate 600 plus D) 1 tab PO HS 05/09/24
celecoxib 200 mg capsule 200 mg PO DAILYPRN PRN moderate pain 05/14/24
cholecalciferol (vitamin D3) 50 mcg (2,000 unit) tablet (Vitamin D3) 50 mcg PO MOWEFR 05/14/24
cyclosporine 0.09 % eye drops in a dropperette (Cequa) 1 drp BOTH EYES BID 05/14/24
famotidine 20 mg tablet 20 mg PO BIDPRN PRN gerd 05/14/24
ibuprofen 200 mg tablet 200 mg PO Q6HPRN PRN mild pain 05/14/24
magnesium oxide 400 mg PO HS 05/14/24
pantoprazole 40 mg tablet,delayed release (Protonix) 40 mg PO DAILYPRN PRN gerd 05/14/24
polyethylene glycol 3350 17 gram oral powder packet (Miralax) 17 g PO DAILYPRN PRN constipation 05/14/24
therapeutic multivitamin 1 tab PO DAILY 05/14/24
Review of Systems
-
History Source: Patient
A 12 point ROS was completed and negative except as noted: Yes
Constitutional: Reports No Symptoms
EENT: Reports No Symptoms
Respiratory: Reports See HPI
Cardiac: Reports See HPI
Abdomen/GI: Reports No Symptoms
: Reports No Symptoms
Musculoskeletal: Reports No Symptoms
Skin: Reports No Symptoms
Neurological: Reports No Symptoms
Endocrine: Reports No Symptoms
Hematologic/Lymphatic: Reports No Symptoms
Psych: Reports No Symptoms
Physical Exam
Vital Signs
Vital Signs
Temp Pulse Resp BP Pulse Ox
98.4 F 124 18 148/96 95
05/14/24 14:21 05/14/24 17:25 05/14/24 17:15 05/14/24 17:25 05/14/24 17:15
Physical Exam
General: Well Developed, Well Nourished and No Apparent Distress
HEENT: NormoCephalic, Moist mucous membranes and Atraumatic
Respiratory: Clear
Cardiac: S1/S2, Irregular Rhythm and Tachycardia; No Murmur or Rub
GI: Soft, Non Tender, Non Distended and Normal Bowel Sounds; No Organomegaly
Rectal: Deferred by Provider
Musculoskeletal: No Clubbing, No Cyanosis and No Edema
Skin: No Rash
Neuro: Nonfocal/grossly intact
Laboratory Results
-
05/14/24 14:37
05/14/24 14:37
Laboratory Results
Total Bilirubin 0.8 mg/dl (0.2-1.3) 05/14/24 14:37
AST 51 U/L (14-36) H 05/14/24 14:37
ALT 89 U/L (0-35) H 05/14/24 14:37
Alkaline Phosphatase 78 U/L (38-126) 05/14/24 14:37
Troponin I 0.312 ng/ml H* 05/14/24 14:37
Data Reviewed
-
Lab Data: Labs Reviewed by me
Old Records: Reviewed
Impression/Plan
-
IMPRESSION:
PLAN:
# Atrial fibrillation with RVR
# Recent ablation for A-fib complicated by pericardial tamponade status post pericardiocentesis
-Heart rate in 120s
-EKG shows atrial fibrillation with heart rate of 113
-N.p.o. past midnight for cardioversion tomorrow
-Continue Cardizem
-As needed Lopressor for heart rate greater than 150
-Continue Eliquis
# Acute CHF exacerbation secondary to tachycardia
-Cardiac BNP of 1100
-Chest x-ray shows small to moderate bilateral pleural effusions
-Check I's and O's, daily weights
-40 IV Lasix daily
# Non-MN troponin elevation secondary to atrial fibrillation/CHF versus NSTEMI
-EKG shows ST depressions in inferior lateral leads
-Troponin 0.3
-Trend troponins
# Transaminitis secondary to hepatic congestion
-Continue to monitor
Essential hypertension
-Continue lisinopril
Hypercholesterolemia
-Continue statin
Sjogren's syndrome
Osteoporosis
GERD
-Continue Protonix, Pepcid,
Full code
DVT prophylaxis�Eliquis
N.p.o. postmidnight
[2024-05-14 18:37] VITALS: BP 166/99; BMI 26.5
[2024-05-14 19:00] VITALS: BP 167/103
[2024-05-14] MEDS: ELIQUIS 5 MG PO (20:33)
[2024-05-14] MEDS: MOTRIN 200 MG PO (20:33)
[2024-05-14 20:42] LABS: Troponin I 0.289 ng/ml
[2024-05-14 20:49] VITALS: BMI 26.5
[2024-05-14] MEDS: MAG-TAB SR 84 MG PO (22:37)
[2024-05-14] MEDS: OSCAL 500 + D 500 MG PO (22:37)
[2024-05-14] MEDS: ZESTRIL 40 MG PO (22:38)
[2024-05-14] MEDS: SALAGEN 5 MG PO (22:41)
[2024-05-14 23:00] VITALS: BP 118/66
[2024-05-15 02:06] LABS: Troponin I 0.248 ng/ml
[2024-05-15 03:00] VITALS: BP 155/89
[2024-05-15 06:00] VITALS: BMI 25.8
[2024-05-15 06:37] LABS: % Basophils 0.6 % (0-2); % Eosinophils 4.6 % (0-6); % Immature Granulocytes 0.2 % (0-0.5); % Lymphocytes 19.7 % (20.5-51.1); % Monocytes 14.9 % (1.7-9.3); Absolute Eosinophils 0.2 10^3/uL (0-0.7); Absolute Monocytes 0.8 10^3/uL (0.1-0.6); Hematocrit 30.1 % (37.0-47.0); Hemoglobin 10.7 g/dL (12.0-16.0); Mean Corp Hgb Conc. 35.5 g/dL (33.0-37.0); Mean Corpuscular Hgb 31.5 pg (27.0-31.0); Mean Corpuscular Volume 88.5 fL (81.0-99.0); Mean Platelet Volume 8.3 fL (7.4-10.4); Nucleated Red Blood Cells % 0 %; Platelet Count 292 10^3/uL (130-400); Red Cell Dist. Width 12.4 % (11.5-14.5)
[2024-05-15 07:03] LABS: ALT (SGPT) 68 U/L (0-35); AST (SGOT) 34 U/L (14-36); Albumin 3.6 g/dl (3.5-5.0); Alkaline Phosphatase 68 U/L (38-126); Blood Urea Nitrogen 13 mg/dl (7-17); Calcium 9.6 mg/dl (8.4-10.2); Carbon Dioxide 30 mmol/L (22-30); Chloride 103 mmol/L (98-107); Estimated Creatinine Clearance 52 ml/min; Glucose 102 mg/dl (70-99); Potassium 3.7 mmol/L (3.5-5.1); Sodium 142 mmol/L (135-145); Total Bilirubin 0.6 mg/dl (0.2-1.3); Total Protein 5.8 g/dl (6.3-8.2); eGFR > 60.00
[2024-05-15 07:11] LABS: Troponin I 0.255 ng/ml
[2024-05-15 07:20] VITALS: BP 146/89
[2024-05-15] MEDS: LIPITOR 40 MG PO (07:55)
[2024-05-15] MEDS: LASIX 40 MG IV (07:55)
[2024-05-15] MEDS: THERAGRAN 1 TABLET PO (07:55)
[2024-05-15] MEDS: CARDIZEM CD 120 MG PO (07:55)
[2024-05-15] MEDS: ELIQUIS 5 MG PO (07:55)
[2024-05-15 10:51] VITALS: BP 149/79
--- NOTE | 2024-05-15 11:11 | CM ---
Patient seen at bedside with physician at bedside. Patient states that she lives with her in a 2 story home. Patient stated that she has no DME at home and her PCP is Dr. Ansari. Patient stated that [facility] [place] but today
would like any pharmacy needs [facility] [address] in [place]. CM reviewed IMM and signed form placed on chart. Patient stated that she is very hungry and anticipates going home with no needs. CM will continue to follow for discharge planning
needs.
Plan; home with no needs.
--- NOTE | 2024-05-15 11:12 | W.PN.HOSP.TC ---
Addendum entered and electronically signed by Rosalva Garcia MD 05/15/24 13:31:
paroxysmal atrial fibrillation
acute diastolic CHF exacerbation (preserved EF)
Original Note:
Today's Communication/Plan
-
await cards
diet advanced
Assessment / Plan
Assessment / Plan
pt is a 73 year old female
Atrial fibrillation with RVR likely due to volume overload--doing better after lasix--HR now in sinus rhythm (without any other intervention)--Recent ablation for A-fib complicated by pericardial tamponade status post pericardiocentesis--As needed
Lopressor for heart rate greater than 150--Continue Eliquis
Acute CHF exacerbation secondary to tachycardia--Cardiac BNP of 1100--Chest x-ray shows small to moderate bilateral pleural effusions--Check I's and O's, daily weights--40 IV Lasix daily
Non-OR troponin elevation secondary to atrial fibrillation/CHF versus NSTEMI--EKG shows ST depressions in inferior lateral leads--Troponin 0.3 (although elevation might be due to previous cardiac ablation then pericardiocentesis)-Trend troponins
Transaminitis secondary to hepatic congestion--Continue to monitor
Essential hypertension--Continue lisinopril
Hypercholesterolemia--Continue statin
Sjogren's syndrome
Osteoporosis
GERD--Continue Protonix, Pepcid,
code status --Full code
DVT prophylaxis�Eliquis
anticipate d/c later today
Anticipated Discharge: Today
Subjective/Interval History
-
Date of Service: May 15, 2024
pt wants to eat
Objective Data
-
Labs:
Laboratory Results
05/15/24
06:23
WBC 5.0
Hgb 10.7 L
Hct 30.1 L
Plt Count 292
Sodium 142
Potassium 3.7
Chloride 103
Carbon Dioxide 30
BUN 13
Creatinine 0.8
Glucose 102 H
Calcium 9.6
Total Bilirubin 0.6
AST 34
ALT 68 H
Alkaline Phosphatase 68
Vital Signs:
max temp for 24 hours
05/14/24
19:00
Temp 98.4 F
Vital Signs
Temp Pulse Resp BP Pulse Ox
98.0 F 74 17 149/79 97
05/15/24 10:51 05/15/24 10:51 05/15/24 10:51 05/15/24 10:51 05/15/24 10:51
I&O
05/14/24 05/15/24 05/16/24
06:59 06:59 06:59
Intake Total 480 / 480
Balance 480 / 480
Review of Systems
-
All other systems: Reviewed and negative
Physical Exam
-
General: Well Developed, Well Nourished and No Apparent Distress
HEENT: Normocephalic and Atraumatic; Negative Oxygen
Respiratory: Clear to Auscultation; Negative Wheezes or Rhonchi
Cardiac: Regular Rhythm and S1/S2; Negative Murmur
GI: Soft, Nontender, Nondistended and Normal Bowel Sounds
Musculoskeletal: No Clubbing, No Cyanosis and No Edema
Skin: Warm and Dry
Neuro: Awake
Psych: Calm
--- NOTE | 2024-05-15 12:03 | CON.CAR ---
Addendum entered and electronically signed by Pardeep Ibanez MD 05/15/24 14:56:
I saw and examined the patient.
The RETAIL SALESPERSON or PA's note was reviewed and I agree with the note.
Comment: General: Well developed, well nourished in NAD.
Neck: Supple, no JVD, HJR, carotids +2 B/L, no bruits bilaterally.
Heart: Non displaced PMI, RRR, no murmurs, No S3, S4, no rubs.
Lungs: Scattered rhonchi at the bases
Extremities: No clubbing, cyanosis or edema bilaterally.
Neuro: Grossly nonfocal, awake, alert and oriented x3.
Ca has a history of A-fib status post ablation with pericardial effusion and drainage in April 2024 on chronic Eliquis, hypertension, Sjogrens syndrome. She presented with shortness of breath and palpitations. She was felt to be in CHF and
was admitted overnight. She also was in A-fib and spontaneously converted to sinus rhythm. She has lost over 4 pounds since admission and feels well.
Stable cardiology status for discharge. Will discharge on Lasix 40 mg daily. Will arrange follow-up visit. Discussed with primary service
Original Note:
Consultation
Consultation Request
Date/Time Consultation Requested: 05/14/24 at 1827
Date/Time Consultation Performed: 05/15/24 at 1157
Requesting Provider: Dr. Garcia
Performing Provider: Dr. Ibanez
Reason for Consultation: Acute HFpEF, recurrent Afib with RVR
Medical History
-
History of Present Illness:
Patient came to [facility] yesterday with increased SOB and palpitations and cardiology has been consulted for acute HF and recurrent Afib. Patient had a PFA ablation for known paroxysmal Afib on . Procedure complicated by pericardial effusion
that was treated with pericardiocentesis and drain. Patient improved and was discharged to home 05/11/24. Due to hypotension in the hospital her outpatient doses of lisinopril 40 mg daily and Cardizem CD 120 mg daily were held on d/c. Patient then
had an outpatient echo 05/14/24 that showed trivial effusion and BP was up so patient was called and asked to resume her usual doses of lisinopril and Cardizem CD. In the time between the echo and the call from the office however the patient had
increased HR and had also started to think more about a 10 lb weight gain she had noticed since coming home from the hospital. Patient was referred to [facility] and was admitted with acute HF overnight. She was given Lasix 40 mg IV daily and weight is
down at least 4 lbs from admission and patient has symptomatically improved with less SOB and bloating. Patient was not taking a diuretic prior to admission.
PMH:
Recent admission for PFA ablation, pericardial effusion 05/09/24 until 05/11/24
Paroxysmal Afib
s/p PFA ablation VOLT trial 05/09/24
Chronic Eliquis OAC
s/p pericardial effusion with drain 05/09/24, no recurrence on echo 05/14/24
HTN
Hyperlipidemia
Sjogren's syndrome
osteoporosis
Past Medical History
Past Medical History: Other (in HPI)
Past Surgical History: Cardiac (Afib ablation 05/09/24, pericardiocentesis 05/09/24), Gynecological (breast surgery) and Orthopedic
Social History
Tobacco: Non-Smoker
Alcohol: None
Drug: None
Personal:
Living: With Family
Family History
Family History: CAD
Allergies / Home Medications
Allergy/AdvReac Type Severity Reaction Status Date / Time
doxycycline Allergy Rash Verified 05/14/24 14:19
�Medication �Instructions �Recorded �Confirmed �Type
apixaban 5 mg tablet (Eliquis) 5 mg PO BID cardiac issues #20 tabs 11/11/22 05/14/24 Rx
atorvastatin 40 mg tablet 40 mg PO DAILY High Cholesterol 11/11/22 05/14/24 History
lisinopril 40 mg tablet 40 mg PO HS Blood Pressure 11/11/22 05/14/24 History
pilocarpine HCl 5 mg tablet 5 mg PO HS Sjogren syndrome 11/11/22 05/14/24 History
vitamin E 670 mg (1,000 unit) 2,400 mg PO HS Supplement 11/11/22 05/14/24 History
capsule
diltiazem HCl 120 mg capsule,24 120 mg PO DAILY #30 caps 10/21/23 05/14/24 Rx
hr,extended release
denosumab 60 mg/mL subcutaneous 60 mg SC [id number] osteoporosis 05/01/24 05/14/24 History
syringe (Prolia)
zolpidem 5 mg tablet 5 mg PO HSPRN PRN sleep 05/01/24 05/14/24 History
calcium carbonate 600 mg-vitamin 1 tab PO HS Supplement 05/09/24 05/14/24 History
D3 20 mcg (800 unit) chewable
tablet (Caltrate 600 plus D)
celecoxib 200 mg capsule 200 mg PO DAILYPRN PRN moderate 05/14/24 05/14/24 History
pain
cholecalciferol (vitamin D3) 50 50 mcg PO MOWEFR Supplement 05/14/24 05/14/24 History
mcg (2,000 unit) tablet (Vitamin
D3)
cyclosporine 0.09 % eye drops in a 1 drp BOTH EYES BID dry eyes 05/14/24 05/14/24 History
dropperette (Cequa)
famotidine 20 mg tablet 20 mg PO BIDPRN PRN gerd 05/14/24 05/14/24 History
ibuprofen 200 mg tablet 200 mg PO Q6HPRN PRN mild pain 05/14/24 05/14/24 History
magnesium oxide 400 mg PO HS Supplement 05/14/24 05/14/24 History
pantoprazole 40 mg tablet,delayed 40 mg PO DAILYPRN PRN gerd 05/14/24 05/14/24 History
release (Protonix)
polyethylene glycol 3350 17 gram 17 g PO DAILYPRN PRN constipation 05/14/24 05/14/24 History
oral powder packet (Miralax)
therapeutic multivitamin 1 tab PO DAILY Supplement 05/14/24 05/14/24 History
Review of Systems
-
History Source: Patient
All other systems: Negative unless noted
Physical Exam
Vital Signs
Temp Pulse Resp BP Pulse Ox
98.0 F 74 17 149/79 97
05/15/24 10:51 05/15/24 10:51 05/15/24 10:51 05/15/24 10:51 05/15/24 10:51
GEN: NAD. AAOx3
HEENT: EOMI, MMM
LUNGS:97% RA. CTA B/L, no wheezes/rales
CV: Reg, S1/S2, mexican food maker rub, no murmur
ABD: soft, BS+, NT, ND
EXT: No clubbing, cyanosis, lesions or edema B/L
NEURO: Gross non-focal
SKIN: Warm, dry and pink. No rash
Lab Results
05/15/24 06:23
05/15/24 06:23
Troponin I 0.255 ng/ml H* 05/15/24 06:23
Hsu-W-Eqbssiolltd Pept 1150 pg/ml 05/14/24 14:37
Impression / Plan
-
PCP: Pankaj Ansari
Cardiology: Dr. Maty Woods
Impression:
Acute HFpEF
Paroxysmal Afib with RVR spontaneously converting to SR 05/15/24 early AM
Recent admission for PFA ablation, pericardial effusion 05/09/24 until 05/11/24
Paroxysmal Afib
s/p PFA ablation VOLT trial 05/09/24
Chronic Eliquis OAC
s/p pericardial effusion with drain 05/09/24, no recurrence on echo 05/14/24
HTN
Hyperlipidemia
Sjogren's syndrome
osteoporosis
Echo 05/14/2024: EF 60 to 65%, normal RV size and function, trivial pericardial effusion, pleural effusion is present
Plan:
-Patient came to [facility] yesterday with increased SOB and palpitations and cardiology has been consulted for acute HF and recurrent Afib. Patient had a PFA ablation for known paroxysmal Afib on . Procedure complicated by pericardial effusion
that was treated with pericardiocentesis and drain. Patient improved and was discharged to home 05/11/24. Due to hypotension in the hospital her outpatient doses of lisinopril 40 mg daily and Cardizem CD 120 mg daily were held on d/c. Patient then
had an outpatient echo 05/14/24 that showed trivial effusion and BP was up so patient was called and asked to resume her usual doses of lisinopril and Cardizem CD. In the time between the echo and the call from the office however the patient had
increased HR and had also started to think more about a 10 lb weight gain she had noticed since coming home from the hospital. Patient was referred to [facility] and was admitted with acute HF overnight. She was given Lasix 40 mg IV daily and weight is
down at least 4 lbs from admission and patient has symptomatically improved with less SOB and bloating. Patient was not taking a diuretic prior to admission.
-Weight is down at least 4 lbs with Lasix 40 mg IV daily since admission. Patient was not taking a diuretic prior to admission. Agree with Lasix 40 mg PO daily upon d/c to home. Talked with patient that she will likely not need Lasix long-term and
we might reduce dose in future.
-Daily weights explained.
-HF f/u visit scheduled.
-No need to repeat echo from yesterday. There is only a trivial pericardial effusion.
-Afib with RVR on admission and then spontaneously converted with diuresis overnight. Cont Cardizem CD and Eliquis as is.
-Cont usual dose of lisinopril 40 mg daily
-Cont usual dose of Cardizem CD 120 mg daily
-Stable for d/c to home with follow up arranged
--- NOTE | 2024-05-15 16:12 | W.DCSUMMARY ---
Discharge Summary
Discharge Data
Date of Admission: 05/14/24
Date of Discharge: 05/15/24
-
Pending Results: No
Hospital Course
Primary care physician : Pankaj Ansari
Principal Discharge diagnosis : Paroxysmal atrial fibrillation leading to acute diastolic congestive heart failure exacerbation, non myocardial injury troponin elevation secondary to atrial fibrillation
Chronic Discharge diagnosis : Essential hypertension, hyperlipidemia, Sjogren's syndrome, osteoporosis, gastroesophageal reflux disease
Hospital Course : Patient is a 73-year-old female with a history of paroxysmal atrial fibrillation status post ablation complicated by pericardial tamponade needing pericardiocentesis who presented to the emergency room for shortness of breath and
rapid heart rate starting the morning of admission. She had some chest tightness but denied pain. She stated that her blood pressure was elevated and she was told to take a dose of Lasix by her mult au matic operator. She gained 10 pounds since being
admitted to the hospital for her ablation. Patient was admitted.
Problem #1: Paroxysmal atrial fibrillation leading to acute diastolic congestive heart failure exacerbation. Patient was admitted and made n.p.o. with plans for cardioversion. Patient converted on her own back to sinus rhythm without any other
intervention other than IV Lasix. This was likely brought on by volume overload with the 10 pound weight gain during her previous hospital admission. She has been seen by cardiology and cleared for discharge. She will be discharged on 40 mg of
p.o. Lasix daily. She should follow-up with cardiology as an outpatient.
Problem #2: Non myocardial injury troponin elevation secondary to atrial fibrillation. Patient had a cardiac proBNP of 1100. Chest x-ray showed small to moderate bilateral pleural effusions. Troponin was 0.3. This was felt to be a nonmyocardial
injury troponin elevation secondary to the CHF exacerbation due to the tachycardia. Also of note, patient had a previous cardiac ablation followed by a pericardiocentesis which certainly could have given rise to the elevated troponins as well.
Problem #3: All other medical issues. These include Essential hypertension, hyperlipidemia, Sjogren's syndrome, osteoporosis, gastroesophageal reflux disease. These medical issues were stable during her hospitalization. Medications were continued
as able.
Patient is stable for discharge home at this time. If there are any questions regarding this dictation or her hospital stay, please do not hesitate to call. Our office number is [phone].
Discharge Plan
-
Patient Disposition: Home (Routine Discharge)
Discharge Diagnosis/Procedures: Paroxysmal atrial fibrillation with rapid ventricular response likely due to volume overload, acute diastolic congestive heart failure exacerbation, nonmyocardial injury troponin elevation secondary to atrial
fibrillation along with congestive heart failure, transaminitis secondary to hepatic congestion, essential hypertension, hyperlipidemia, Sjogren syndrome, osteoporosis, gastroesophageal reflux disease
Condition: Good
Diet: Low Cholesterol and 2 Gram Sodium
Activity: As tolerated
Driving Restrictions: As prior to admission
Bathing Restrictions: None
Specialty Instructions: Weigh Daily- Call MD for wt gain/loss 3 lbs overnight/5 lbs in 1 week
Instructions: *[facility] Heart Failure Instructions
Referrals:
Pankaj Ansari PA-C [Family Provider] - in less than 1 week
Maty Woods MD [Active] - 05/18/24 12:40 pm (You have an appt to see Dr. Maty Woods's physician store assistant, Dee Dee, at the [place] office on 05/18/24 at 12:40 PM. Please call [phone] if you need to reschedule. )
Prescriptions:
New
furosemide 40 mg tablet
40 mg PO DAILY Qty: 30 0RF
Continued
atorvastatin 40 mg tablet
40 mg PO DAILY
vitamin E 670 mg (1,000 unit) Capsule
2,400 mg PO HS
Rx Instructions:
Pt confirmed that dose is 2,400
pilocarpine HCl 5 mg tablet
5 mg PO HS
lisinopril 40 mg tablet
40 mg PO HS
Eliquis 5 mg tablet
5 mg PO BID Qty: 20 0RF
diltiazem HCl 120 mg capsule,extended release 24 hr
120 mg PO DAILY Qty: 30 0RF
zolpidem 5 mg Tablet
5 mg PO HSPRN PRN (Reason: sleep)
Patient Comments:
05/14/24: last filled 08/02/23 for 90 tablets over 90 days at [facility] pharmacy
Prolia 60 mg/mL Syringe
60 mg SC [id number]
Rx Instructions:
Next dose due 07/2024
Caltrate 600 plus D 600 mg-20 mcg (800 unit) Tablet,Chewable
1 tab PO HS
polyethylene glycol 3350 [Miralax] 17 gram Powder In Packet
17 g PO DAILYPRN PRN (Reason: constipation)
therapeutic multivitamin Tablet
1 tab PO DAILY
famotidine 20 mg Tablet
20 mg PO BIDPRN PRN (Reason: gerd)
cholecalciferol (vitamin D3) [Vitamin D3] 50 mcg (2,000 unit) Tablet
50 mcg PO MOWEFR
magnesium oxide 400 mg magnesium Tablet
400 mg PO HS
Cequa 0.09 % Dropperette
1 drp BOTH EYES BID
pantoprazole [Protonix] 40 mg tablet,delayed release (DR/EC)
40 mg PO DAILYPRN PRN (Reason: gerd)
Discontinued
celecoxib 200 mg Capsule
200 mg PO DAILYPRN PRN (Reason: moderate pain)
ibuprofen 200 mg Tablet
200 mg PO Q6HPRN PRN (Reason: mild pain)
Discharge Orders:
Discharge Patient (As Directed); Ordered 05/15/24
Ordered By: Rosalva Garcia
Discharge Date and Time
Discharge Date/Time: 05/15/24 15:15
Print Language: PERUVIAN
== END 2024-05-15 15:15 | disposition home or self-care (01) | DRG 308 ==
LOC: 3 WEST ACU 17:51
PROVIDERS: Emergency Medicine; ADMITTING PHYSICIAN Hospitalist; ATTENDING PHYSICIAN Internal Medicine; EMERGENCY PHYSICIAN Emergency Medicine; FAMILY PHYSICIAN Physician Assistant Medical; OTHER PHYSICIAN Internal Medicine Cardiovascular Disease
DX: I48.0 Paroxysmal atrial fibrillation (principal); I50.33 Acute on chronic diastolic (congestive) heart failure; I5A Non-ischemic myocardial injury (non-traumatic); J91.8 Pleural effusion in other conditions classified elsewhere; I11.0 Hypertensive heart disease with heart failure; K76.1 Chronic passive congestion of liver; M35.00 Sjogren syndrome, unspecified; E78.00 Pure hypercholesterolemia, unspecified; K21.9 Gastro-esophageal reflux disease without esophagitis; K59.00 Constipation, unspecified; I25.10 Atherosclerotic heart disease of native coronary artery without angina pectoris; M81.0 Age-related osteoporosis without current pathological fracture; Z79.01 Long term (current) use of anticoagulants; Z79.899 Other long term (current) drug therapy; Z86.79 Personal history of other diseases of the circulatory system; Z87.891 Personal history of nicotine dependence; Z88.1 Allergy status to other antibiotic agents
CPT/HCPCS: 93308; 71046; 80053; 83880; 84484; 85025; 93005; 96374; 99285

== ENCOUNTER → 2024-05-22 10:43 | Outpatient (REF) | payer MEDICARE, OTHER, SELFPAY | LOC: RAD 10:43 | PROVIDERS: ATTENDING PHYSICIAN Physician Assistant Medical; FAMILY PHYSICIAN Physician Assistant Medical | DX: J90 Pleural effusion, not elsewhere classified (principal) | CPT/HCPCS: 71046 ==

== ENCOUNTER 2024-05-25 06:45 | Inpatient (IN) | payer MEDICARE, OTHER, SELFPAY ==
[2024-05-24 17:17] VITALS: BP 132/76
--- NOTE | 2024-05-24 18:23 | ED.GENMED ---
History of Present Illness
General
Chief Complaint: Breathing Problem
Source: patient
Exam Limitations: none
Time Seen by Provider: 05/24/24 17:55
History of Present Illness
History of Present Illness:
This is a 73 year old female that comes in with c/o SOB and for admission. States that Dr. Trell Woods sent her in for admission. State that she had a Cardiac ablation on the . States that she had complications as blood filled up in the sac
around her heart. States that she had a chest tube. Then she went home on the . States that she still had fluid in her lungs. Patient had a chest x-ray Tuesday. State that she was in the [facility] office last week and she was given Lasix.
States that she feels like there is this phlegm in her throat and was given Mucinex. States that she is still SOB. States that she can't go up the steps with out being winded and she can't walk from the kitchen to the Dinning room which is about 10
feet and she is SOB. States that her heart rate when she gets up in the morninig is 80-82 and normally she is about 60. States that she has chest heaviness with the SOB. Denies any fever, chills, abd pain, nausea, vomiting, diarrhea, headache,
dizziness, urinary burning.
Past History
Past History
ED Past Medical History: Arrthythmia (Atrial fib), GERD, HTN and Hypercholesterolemia
ED Past Surgical History: Cardiac (Ablation), Orthopedic (Knee surgery right, ) and Other (cataracts, Left breast mass removed Benign, )
Social History
Tobacco: Former smoker
Alcohol: Occasional
Personal:
Living: with family
Review of Systems
Review of Systems
All Other Systems: ROS reviewed and negative except as documented in HPI and ROS
Constitutional: Reports no symptoms; Denies fever or chills
EENT: Reports no symptoms
Respiratory: Reports trouble breathing; Denies cough
Cardiac: Reports chest pain
ABD/GI: Reports no symptoms; Denies abdominal pain, nausea, vomiting or diarrhea
: Reports no symptoms; Denies dysuria, frequency or urgency
Musculoskeletal: Reports no symptoms
Skin: Reports no symptoms
Neurological: Reports no symptoms; Denies dizzy or headache
Psychiatric: Reports no symptoms
Phy Exam
General Physical Exam
General Presentation: no apparent distress
General age: appears stated age
General Skin: warm and dry
General Habitus: elderly
General Mental: alert
General Hydration: appears well hydrated
ENT Exam
ENT Exam: TM's normal, pharynx normal and neck supple
Eye Exam
Eye Exam: EOMI
Cardiovascular Exam
Cardiovascular Exam: regular rate/rhythm, no edema and normal peripheral pulses
Pulmonary Exam
Pulmonary Exam: no respiratory distress, no rales, chest non tender, no crackles, no rhonchi, no wheezing, no cough and decreased breath sounds (Bilaterally at bases, )
Gastrointestinal Exam
Gastrointestinal Exam: normal bowel sounds, non tender, soft, no organomegaly, no pulsatile mass and non distended
Musculoskeletal Exam
Musculoskeletal Exam: full ROM and no edema
Skin Exam
Skin Exam: normal color, warm/dry, no rash and no petechia
Psychiatric Exam
Psychiatric Exam: normal mood/affect
Scores
Heart Failure Risk
Heart Failure Risk Score: Yes
History of Stroke or TIA: No
History of intubation for respiratory distress: No
Heart rate on ED arrival >/= 110: No
SaO2 <90% on arrival on room air: No
HR >/=110 during 3min walk test (or too ill to perform test): No
ECG has acute ischemic changes: No
Urea >/=12mmol/L (BUN 33.6mg/dL): No
Serum CO2>/=35mmol/L: No
Troponin I or T elevated to AK Level (0.4mg/dL): No
NT-proBNP >/=5,000ng/L (5,000pg/ml): No
HF Risk Score: 0
Admission Status: LOW RISK 2.8% Consider discharge to home with f/u visit to PCP/[facility]
Course
Orders/Labs/Results
Orders:
Orders
05/24/24 Dinner
Cholesterol Lowering
At Your Request: Full Participation
Does patient need a safe tray?: No
Reason for opting out of [employer] order writing: Provider Decision
Fluid Restriction: 1200 mL/day (40 oz)
Cholesterol Lowering: Sodium, 2 Gram
05/24/24 17:17
Electrocardiogram (*1) Urgent
Reason for Study: Chest Pain
EKG- Treatment ONCE
05/24/24 18:22
CR Chest - 2 Views Urgent
Comment:
Reason For Exam: SOB
05/24/24 18:42
Complete Blood Count/With Diff Urgent
Comprehensive Metabolic Panel Urgent
NT-proBNP Urgent
Troponin I Urgent
05/24/24 19:17
Consult Cardiology [CARDIOLOGY CONSULT] Urgent
Consulting Provider: Stephanie Abbott
Was physician already notified: Yes
05/24/24 19:55
Prothrombin Time Urgent
05/24/24 20:39
Admit/Transfer Patient As Directed
Co-Sign Provider:
Level of Care: Observation services
Assign to:: Telemetry
Physician / Group: ricci [email or web address]
Diagnosis: dyspnea 2/2 bilat pleural effusions
Reason for Telemetry: Acute Heart Failure
Date to Stop Telemetry: 05/27/24
Time to Stop Telemetry: 11:00
Reason for Hospitalization: dyspnea 2/2 bilat pleural effusions
Code Status As Directed
Resuscitation Status: Full Code
05/24/24 20:49
PRN Pain Medication Management As Directed
May give lesser potent ordered pain med per pt: Yes
preference::
Protocol:: Medication orders for pain may be administered in a
manner that supports deferring to patient preference
when the pt is:
- Requesting an ordered lesser potent pain medication.
Least to most potent pain medications are defined
as: acetaminophen < NSAID < tramadol < opioids
(morphine, oxycodone, hydromorphone).
- Requesting a lesser dose of the same medication IF
ORDERED.
- Requesting a less intrusive route of administration
if both routes are prescribed by the provider (PO <
IV).
05/24/24 20:57
Furosemide [Lasix] 40 mg IV NOW STA
05/24/24 22:23
Acetaminophen [Tylenol] 1,000 mg PO Q6HPRN PRN
Famotidine [Pepcid] 20 mg PO BIDPRN PRN
Flecainide [Tambocor] 50 mg PO Q12
Pantoprazole [Protonix] 40 mg PO DAILYPRN PRN
Pilocarpine Non-Formulary [Salagen] 5 mg PO HS
Polyethylene Glycol Powder [Miralax] 17 grams PO DAILYPRN PRN
Zolpidem Tartrate [Ambien] 5 mg PO HSPRN PRN
vitamin E 2,400 mg PO HS
05/24/24 22:23
[facility] CONSULT Routine
Consulting Provider: Mariano Vogt
Was physician already notified: Yes
Reason for Consult/Procedure: bilat plueral effusions
Acknowledgement that appropriate orders are entered: Yes
VTE Contraindication Routine
VTE Mechanical Device Contraindication: Medical Contraindication
Pharmocologic Contraindication: Medical Contraindication
Comment: pt on eliquis
Acid Fast Culture & Smear Routine
CYRUS Source: Pleural Fluid
Specimen Description:
Comment: post procedure
Body Fluid Amylase Routine
Fluid Source: Pleural
Body Fluid Cell Count Routine
What is the Body Fluid: pleural fluid
Comment: post procedure
Body Fluid Glucose Routine
Fluid Source: Pleural
Body Fluid LDH Routine
Fluid Source: Pleural
Body Fluid Protein Routine
Fluid Source: Pleural
Body Fluid Triglycerides Routine
Fluid Source: Pleural
Body Fluid pH Routine
Fluid Source: Pleural
Fluid Culture with Gram Stain Routine
CYRUS Source: Pleural Fluid
Specimen Description:
Comment: post procedure
Fungus Culture Routine
CYRUS Source: Pleural Fluid
Specimen Description:
Fungus Smear Routine
CYRUS Source: Pleural Fluid
Specimen Description:
Gram Stain Routine
CYRUS Source: Pleural Fluid
Specimen Description:
Comment: POST PROCEDURE
Activity As Directed
Activity Level: As Tolerated
Intake/ Output As Directed
Frequency: Per unit guidelines
Vital Signs As Directed
Frequency: Per unit guidelines
Weight As Directed
Frequency: Daily
IR[facility] Cytology Routine
Source: Pleural Fluid, Right
List other source: left plueral
Clinical Impression: chf
Pulse Ox/spot Check [RESP] Routine
Quantity: 1
Ot Eval And Treat Routine
Pt Eval And Treat Routine
Activity Level: As Tolerated
05/24/24 23:00
Calcium Carbonate/Vitamin D3 [Oscal 500 + D] 500 mg PO HS
Lisinopril [Zestril] 40 mg PO HS
Magnesium l-Lactate [Mag-Tab Sr] 84 mg PO HS
05/25/24 06:00
Basic Metabolic Panel IN AM
Complete Blood Count/With Diff IN AM
05/25/24 08:00
Apixaban [Eliquis] 5 mg PO BID
Atorvastatin [Lipitor] 40 mg PO DAILY
Cholecalciferol (Vitamin D3) [VITAMIN D3 (cholecalciferol)] 50 mcg PO MoWeFr@0800
Diltiazem Extended Release [Cardizem Cd] 120 mg PO DAILY
Furosemide [Lasix] 40 mg IV DAILY
Multivitamin [Theragran] 1 tablet PO DAILY
cycloSPORINE [Restasis 0.05% Ophthalmic Emulsion] 1 drops BOTH EYES BID
05/27/24 11:00
DC Protocol for Telemetry ONCE
Abnormal Lab Results
05/24/24 05/24/24
18:42 19:55
RBC 3.32 L 10^6/uL
(4.20-5.40)
Hgb 10.0 L g/dL
(12.0-16.0)
Hct 28.8 L %
(37.0-47.0)
Plt Count 448 H 10^3/uL
(130-400)
Absolute Lymphs (auto) 0.8 L 10^3/uL
(1.2-3.4)
Absolute Monos (auto) 1.0 H 10^3/uL
(0.1-0.6)
Lymphocytes % 10.1 L %
(20.5-51.1)
Monocytes % 13.4 H %
(1.7-9.3)
PT 16.0 H Sec
(11.4-14.6)
Carbon Dioxide 19 L mmol/L
(22-30)
Glucose 103 H mg/dl
(70-99)
ALT 47 H U/L
(0-35)
Total Protein 5.9 L g/dl
(6.3-8.2)
05/24/24 18:42
05/24/24 18:42
H/H low but consistent with prior labs, Plt slightly elevated. glucose nonfasting. AST mildly elevated. total protein slightly low.
troponin <0.012, Pro-BNP 441, PT 16.0 with INR 1.27
Vital Signs
Initial and Last Documented VS:
Initial Vital Signs
Temp Pulse Resp BP Pulse Ox
98.0 F 83 16 132/76 98
05/24/24 17:17 05/24/24 17:17 05/24/24 17:17 05/24/24 17:17 05/24/24 17:17
Last Documented Vital Signs
Temp Pulse Resp BP Pulse Ox
98.5 F 79 16 145/82 96
05/24/24 23:00 05/24/24 23:00 05/24/24 23:00 05/24/24 23:00 05/24/24 23:00
MDM/Problems Addressed
Differential Diagnosis Includes:
Pleural effusion,
MDM/Problems Addressed:
This is a 73 year old female that comes in with c/o SOB and is to be admitted. Patient was sent in by Dr. Woods. She had an ablation and had complications after. States that she is very SOB and can't even walk more then 10 feet.
Will get labs, Chest x-ray and admit.
Spoke with Dr. Abbott and Hospitalist are to admit.
Hospitalist notified about admission.
Chronic conditions affecting care:
Ablation with complications
Acute Exacerbation and/or Progression of Chronic Illness:
Pleural effusion,
*Radiology
Radiology exam reviewed: preliminary read by ED provider (Chest- Bilateral pleural effusion)
*Pulse Oximetry
Patient hypoxic: no
*EKG
Interpreted by ED Provider?: Yes
Heart Rate: 79
Rate: normal
Rhythm: sinus arrhythmia
[place] [address]: normal axis
QRS Pattern: normal QRS
Ischemia: T-wave inversion (I, II, III, aVF, V5, V6)
*Saw Sharpener Interpretation
Rate: normal
Heart Rate: 79
Rhythm: sinus
*Critical Care Note
Total Time (30-74mins, 75-104mins- exclusive of procedures): Not Applicable
ED Attending Note
-
Portions of this chart may have been created with voice recognition software.� Occasional wrong word or��sound alike� substitutions may have occurred due to the inherent limitations of voice recognition software.
Discharge Plan
Departure
Patient Disposition: Admit
Date of Disposition: 05/24/24
Time of Disposition: 19:49
Admit to: Telemetry
Presentation/result/management discussed w/ accepting MD/DO: Hospitalist
Patient with high blood pressure during this ER visit?: Yes
Condition: Good
Covid-19: Not Applicable
Discharge Problem:
Bilateral pleural effusion, SOB (shortness of breath)
Interventions
Interventions:
*Risk Screen - Suicide Last Done: 05/24/24 18:56
*General Assessment Last Done: 05/24/24 18:56
*Neglect/Abuse Screening Last Done: 05/24/24 18:56
ED- Fall Risk Assessment Last Done: 05/24/24 18:56
*ED COVID-19 Vaccine History Last Done: 05/24/24 22:36
*Nursing Disposition Last Done: 05/24/24 22:19
ED- Cardiac Assessment Last Done: 05/24/24 18:56
ED- Pulmonary Assessment Last Done: 05/24/24 18:56
Discharge Date and Time
Discharge Date/Time: 05/24/24 22:19
[2024-05-24 18:52] LABS: % Basophils 0.4 % (0-2); % Eosinophils 1.1 % (0-6); % Immature Granulocytes 0.5 % (0-0.5); % Lymphocytes 10.1 % (20.5-51.1); % Monocytes 13.4 % (1.7-9.3); % Neutrophils 74.5 % (42.2-75.2); Absolute Eosinophils 0.1 10^3/uL (0-0.7); Absolute Lymphocytes 0.8 10^3/uL (1.2-3.4); Absolute Neutrophils 5.6 10^3/uL (1.4-6.5); Hematocrit 28.8 % (37.0-47.0); Mean Corp Hgb Conc. 34.7 g/dL (33.0-37.0); Mean Corpuscular Hgb 30.1 pg (27.0-31.0); Mean Corpuscular Volume 86.7 fL (81.0-99.0); Mean Platelet Volume 8.1 fL (7.4-10.4); Nucleated Red Blood Cells % 0 %; Platelet Count 448 10^3/uL (130-400); Red Blood Cell Count 3.32 10^6/uL (4.20-5.40); Red Cell Dist. Width 12.6 % (11.5-14.5); White Blood Cell Count 7.5 10^3/uL (4.8-10.8)
[2024-05-24 19:08] LABS: ALT (SGPT) 47 U/L (0-35); AST (SGOT) 32 U/L (14-36); Albumin 3.6 g/dl (3.5-5.0); Alkaline Phosphatase 86 U/L (38-126); Blood Urea Nitrogen 12 mg/dl (7-17); Calcium 8.7 mg/dl (8.4-10.2); Carbon Dioxide 19 mmol/L (22-30); Chloride 103 mmol/L (98-107); Glucose 103 mg/dl (70-99); Potassium 4.2 mmol/L (3.5-5.1); Sodium 137 mmol/L (135-145); Total Bilirubin 0.6 mg/dl (0.2-1.3); Total Protein 5.9 g/dl (6.3-8.2); eGFR > 60.00
[2024-05-24 19:15] LABS: NT-proBNP 441 pg/ml; Troponin I < 0.012 ng/ml
--- NOTE | 2024-05-24 20:10 | HPS.HSE ---
Addendum entered and electronically signed by Bandar Amaral DO 05/24/24 21:42:
Patient seen and examined independently. Agree with findings and plan as set forth by LINDY Singh.
Patient is a 73y F with PMH significant for paroxysmal A-Fib who presents to ED complaining of persistent SOB / fatigue. Patient initially had ablation for A-Fib done on 05/09. She developed increased SOB and tachycardia and returned to the ED a
few days later. She was admitted and found to have pericardial effusion which was drained. She was newly started on Lasix (40mg daily) at discharge. Patient states that her weight has not changed since that time. She has had hacking, minimally
productive cough and overwhelming fatigue. Her Lasix dose was decreased by 1/2 last week.
She denies any chest pain, fevers / chills, etc.
Patient primarily notes racing heartbeat that occurs with any activity at all.
Ass:
PEARSON / Tachycardia
Bilateral Pleural Effusions
Paroxysmal Atrial Fibrillation s/p Ablation
HFpEF
Pericardial Effusion s/p Ablation
Benign Hypertension
Sjogren's Syndrome
GERD
Osteoporosis
Plan:
Admit for further evaluation and treatment.
No significant weight gain and no evidence of significant HF exacerbation.
Continue Lasix at current dose but change to IV.
Cardiology evaluation for additional recommendations.
IR eval for possible diagnostic / therapeutic thoracentesis of persistent / slightly increased pleural effusions.
? update Echo - defer to Cardiology.
Original Note:
Family Physician
-
Family Physician: Pankaj Ansari PA-C
Chief Complaint
-
Increase shortness of breath, PEARSON
History of Present Illness
73-year-old female complaining of shortness of breath since being discharged from the hospital 05/15/2024. She states she was taking 40 mg of Lasix until 05/18/2024 when the cardiology ANIMAL ATTENDANT decreased to 20 mg daily over the past 6 days. She
had outpatient chest x-ray 2 days ago and was sent today by Dr. Floyd Woods for admission due to bilateral pleural effusions. She reports dyspnea on exertion with going up her stairs or walking from the kitchen to the dining room
approximately 10 feet. She also complains of chest heaviness with the shortness of breath. She denies fever, chills, abdominal pain, nausea, vomiting, diarrhea, urinary symptoms, fever, chills. She agrees when I asked if she is following a 40
ounces fluid restrict diet but seemed puzzeled when I asked this question. she also was unaware of a salt restriction diet and has had 'salty items recently'
The patient had recent admission 05/14 - 05/15/2024 secondary to paroxysmal A-fib leading to acute diastolic CHF exacerbation. Patient converted on her own back to sinus rhythm she did receive IV Lasix and was discharged on oral 40 mg Lasix p.o. she
also had bump in her troponin to 0.3 secondary to A-fib. Other past medical history includes HTN�benign, HLD, Sjogren's syndrome, osteoporosis, GERD
Medical History
Past Medical History
Past Medical History: Reports Other (paroxysmal atrial fibrillation status post ablation, pericardial tamponade status post pericardiocentesis, hypertension, hypercholesterolemia, Sjogren syndrome, osteoporosis,)
Past Surgical History: Reports Other (knee reconstruction, Breast biopsy.)
Social History
Tobacco: Non-smoker
Alcohol: Occasional
Drug: None
Personal:
Living: With Family
Family History
Family History: Not pertinent
Allergies / Home Medications
Allergies reflects when Allergies were last updated in [employer].
Home Medications with original date entered in [employer]
Allergy/Medication List:
Allergies
Allergy/AdvReac Type Severity Reaction Status Date / Time
doxycycline Allergy Rash Verified 05/24/24 17:21
Home Medications
apixaban 5 mg tablet (Eliquis) 5 mg PO BID cardiac issues #20 tabs 11/11/22
atorvastatin 40 mg tablet 40 mg PO DAILY High Cholesterol 11/11/22
lisinopril 40 mg tablet 40 mg PO HS Blood Pressure 11/11/22
pilocarpine HCl 5 mg tablet 5 mg PO HS Sjogren syndrome 11/11/22
vitamin E 670 mg (1,000 unit) capsule 2,400 mg PO HS Supplement 11/11/22
diltiazem HCl 120 mg capsule,24 hr,extended release 120 mg PO DAILY #30 caps 10/21/23
denosumab 60 mg/mL subcutaneous syringe (Prolia) 60 mg SC [id number] osteoporosis 05/01/24
zolpidem 5 mg tablet 5 mg PO HSPRN PRN sleep 05/01/24
calcium carbonate 600 mg-vitamin D3 20 mcg (800 unit) chewable tablet (Caltrate 600 plus D) 1 tab PO HS Supplement 05/09/24
cholecalciferol (vitamin D3) 50 mcg (2,000 unit) tablet (Vitamin D3) 50 mcg PO MOWEFR Supplement 05/14/24
cyclosporine 0.09 % eye drops in a dropperette (Cequa) 1 drp BOTH EYES BID dry eyes 05/14/24
famotidine 20 mg tablet 20 mg PO BIDPRN PRN gerd 05/14/24
magnesium oxide 400 mg PO HS Supplement 05/14/24
pantoprazole 40 mg tablet,delayed release (Protonix) 40 mg PO DAILYPRN PRN gerd 05/14/24
polyethylene glycol 3350 17 gram oral powder packet (Miralax) 17 g PO DAILYPRN PRN constipation 05/14/24
therapeutic multivitamin 1 tab PO DAILY Supplement 05/14/24
acetaminophen 500 mg tablet (Tylenol Extra Strength) 1,000 mg PO Q6HPRN PRN mild pain 05/24/24
flecainide 50 mg tablet 50 mg PO Q12H 05/24/24
furosemide 40 mg tablet 20 mg PO DAILY Fluid retention/Swelling 05/24/24
Review of Systems
-
History Source: Patient and Family ( )
A 12 point ROS was completed and negative except as noted: Yes
Constitutional: Denies Fever, Fatigue or Chills
EENT: Denies Sore Throat or Runny Nose
Respiratory: Reports Cough (dry ) and Trouble Breathing (sob pearson )
Cardiac: Denies Chest Pain, Diaphoresis, Palpitations or Syncope
Abdomen/GI: Denies Abdominal Pain, Nausea, Vomiting, Diarrhea, Constipated, Bloody Stools or Black Stools
: Denies Dysuria, Frequency, Flank Pain, Incontinence or Difficulty Voiding
Musculoskeletal: Denies Joint Pain or Edema
Skin: Denies Itching or Rash
Neurological: Denies Dizzy, Headache or Weakness
Endocrine: Reports No Symptoms
Hematologic/Lymphatic: Reports No Symptoms
Psych: Reports Calm
Physical Exam
Vital Signs
Vital Signs
Temp Pulse Resp BP Pulse Ox
98.0 F 83 16 132/76 98
05/24/24 17:17 05/24/24 17:17 05/24/24 17:17 05/24/24 17:17 05/24/24 17:17
Physical Exam
General: Comfortable and Conversant; No Pain, Fever or Chills
HEENT: NormoCephalic, Anicteric, Moist mucous membranes, PERRLA, [place] Conjunctivae and No Ptosis
Respiratory: Other (diminshed bilat bases)
Cardiac: S1/S2 and Regular Rhythm; No Murmur, Rub, Gallop or Peripheral Edema
GI: Soft, Non Tender, Non Distended, Normal Bowel Sounds and No Hepatosplenomegaly
Rectal: Deferred by Provider
Genito-urinary: Deferred by me
Musculoskeletal: No Clubbing, No Cyanosis and No Edema
Skin: Warm and Dry; No Rash or Jaundice
Neuro: AO x 3, No Motor Deficits, Nonfocal/grossly intact, Cranial Nerves Intact and No Sensory Deficits; No Slurred Speech, Facial Droop or Tremors
Psych: Calm
Laboratory Results
-
05/24/24 18:42
05/24/24 18:42
Laboratory Results
Total Bilirubin 0.6 mg/dl (0.2-1.3) 05/24/24 18:42
AST 32 U/L (14-36) 05/24/24 18:42
ALT 47 U/L (0-35) H 05/24/24 18:42
Alkaline Phosphatase 86 U/L (38-126) 05/24/24 18:42
Troponin I < 0.012 ng/ml 05/24/24 18:42
Data Reviewed
-
Diagnostic Radiology: Report Reviewed by me
Lab Data: Labs Reviewed by me
Impression/Plan
-
Impression/plan:
OBS telemetry
#Acute bilateral pleural effusions
98% RA
-Consult IR for thoracentesis
#Recent heart failure exacerbation precipitated by rapid A-fib self corrected
-Was treated with IV Lasix and continued p.o. Lasix at home 40 mg daily
- the pt was on lasix 40 mg x3 days then decreased to Lasix 20 mg last 6 days by cardiology ANIMAL ATTENDANT
-BNP 441
- Iv lasix 40 mg now and Iv lasix 40 mg daily
- consult [facility] cardiology
#A-fib paroxysmal original Dx 2021
#Hx status post ablation 05/09/2024 Dr. Woods complicated by pericardial tamponade requiring pericardiocentesis
#Recent A-fib with RVR 05/14/2024 soft corrected
-Continue diltiazem 120 mg daily, Eliquis 5 mg twice daily
-Continue flecainide 50 mg every 12 hours
#HTN�benign
BP 132/76
-Continue lisinopril 40 mg at bedtime
#HLD
-Continue statin
#Sjogren's syndrome
-Continue pilocarpine 5 mg at bedtime, eyedrops
#GERD
-Continue Protonix, Pepcid
#Osteoporosis
Takes Prolia 60 mg SQ every 6 months unknown last dose
DVT prophylaxis
Continue LAUNDRY AID Eliquis
Full code
[2024-05-24 20:14] LABS: INR 1.27
[2024-05-24 21:42] VITALS: BP 145/77
[2024-05-24 22:00] VITALS: BP 137/72
--- NOTE | 2024-05-24 22:30 | PTCARENOTE ---
Patient arrived from the ED via stretcher. Patient ambulated into the room. AAOx3, VSS. 98% on RA. Patient SOB with activity. Patient educated on medication list, and plan of care. Call lees is within reach.
[2024-05-24 22:36] VITALS: BP 138/90; BMI 25.9
[2024-05-24 22:53] VITALS: BMI 25.9
[2024-05-24 23:00] VITALS: BP 145/82
[2024-05-24] MEDS: LASIX 40 MG IV (23:00)
[2024-05-24] MEDS: ZESTRIL 40 MG PO (23:01)
[2024-05-24] MEDS: OSCAL 500 + D 500 MG PO (23:01)
[2024-05-24] MEDS: TAMBOCOR 50 MG PO (23:01)
[2024-05-24] MEDS: MAG-TAB SR 84 MG PO (23:01)
[2024-05-24] MEDS: AMBIEN 5 MG PO (23:02)
[2024-05-24] MEDS: SALAGEN PO (23:26)
[2024-05-24] MEDS: TYLENOL 1000 MG PO (23:26)
[2024-05-25] VITALS (9 sets, daily range): BP systolic 114–142; BP diastolic 16–79; PULSE 101; BMI 25.4
[2024-05-25 08:29] LABS: % Basophils 0.5 % (0-2); % Eosinophils 1.8 % (0-6); % Immature Granulocytes 0.3 % (0-0.5); % Lymphocytes 11.8 % (20.5-51.1); % Neutrophils 71.6 % (42.2-75.2); Absolute Eosinophils 0.1 10^3/uL (0-0.7); Absolute Lymphocytes 0.8 10^3/uL (1.2-3.4); Absolute Monocytes 0.9 10^3/uL (0.1-0.6); Absolute Neutrophils 4.7 10^3/uL (1.4-6.5); Hematocrit 30.5 % (37.0-47.0); Hemoglobin 10.2 g/dL (12.0-16.0); Mean Corp Hgb Conc. 33.4 g/dL (33.0-37.0); Mean Corpuscular Hgb 29.5 pg (27.0-31.0); Mean Corpuscular Volume 88.2 fL (81.0-99.0); Mean Platelet Volume 8.2 fL (7.4-10.4); Nucleated Red Blood Cells % 0 %; Platelet Count 525 10^3/uL (130-400); Red Blood Cell Count 3.46 10^6/uL (4.20-5.40); Red Cell Dist. Width 12.6 % (11.5-14.5); White Blood Cell Count 6.5 10^3/uL (4.8-10.8)
[2024-05-25] MEDS: THERAGRAN 1 TABLET PO (08:44)
[2024-05-25] MEDS: CARDIZEM CD 120 MG PO (08:44)
[2024-05-25] MEDS: LASIX 40 MG IV (08:44)
[2024-05-25] MEDS: RESTASIS 0.05% OPHTHALMIC EMULSION 1 DROPS BOTH EYES ×2 (08:44→20:12)
[2024-05-25] MEDS: LIPITOR 40 MG PO (08:44)
[2024-05-25] MEDS: ELIQUIS 5 MG PO ×2 (08:44→20:12)
[2024-05-25 09:03] LABS: Blood Urea Nitrogen 12 mg/dl (7-17); Carbon Dioxide 26 mmol/L (22-30); Chloride 101 mmol/L (98-107); Estimated Creatinine Clearance 59 ml/min; Glucose 105 mg/dl (70-99); Potassium 4.2 mmol/L (3.5-5.1); Sodium 137 mmol/L (135-145); eGFR > 60.00
--- NOTE | 2024-05-25 09:05 | CON.CAR ---
Addendum entered and electronically signed by Pardeep Ibanez MD 05/25/24 15:14:
I saw and examined the patient.
The [employer] or PA's note was reviewed and I agree with the note.
Comment: General: Well developed, well nourished in NAD.
Neck: Supple, no JVD, HJR, carotids +2 B/L, no bruits bilaterally.
Heart: Non displaced PMI, RRR, no murmurs, No S3, S4, no rubs.
Lungs: Scattered rhonchi
Extremities: No clubbing, cyanosis or edema bilaterally.
Neuro: Grossly nonfocal, awake, alert and oriented x3.
Ca has history of hypertension, hyperlipidemia, Sjogren syndrome, PAF on chronic Eliquis status post ablation status post ablation April 2024 with Pericardial effusion status post drainage, hypertension. She presents with cough and shortness
of breath. She is admitted for acute diastolic CHF. She feels significantly better after IV Lasix. She currently is not on oxygen.
Will continue IV Lasix for now. Possibly change to oral Lasix on 05/26. Will recheck echocardiogram to exclude pericardial effusion
Original Note:
Consultation
Consultation Request
Date/Time Consultation Requested: 05/24/2024
Date/Time Consultation Performed: 05/24/2024
Requesting Provider: LINDY Singh
Performing Provider: Dee Dee Manriquez PA-C for Dr. Pardeep Ibanez
Reason for Consultation: Shortness of breath, pericardial effusions
Medical History
-
History of Present Illness:
She has past medical history significant for hypertension, hyperlipidemia, Sjogren's syndrome, osteoporosis, paroxysmal atrial fibrillation on chronic anticoagulation with Eliquis, pericardial effusion status post pericardiocentesis who presented to
ED 05/24/2024 with increased SOB, cough and palpitations. Patient had a PFA ablation for known paroxysmal Afib on . Procedure complicated by pericardial effusion that was treated with pericardiocentesis and drain. Patient improved and was
discharged to home 05/11/24. Repeat echocardiogram as outpatient 05/14/2024 showed trivial pericardial effusion. Later that evening she called the office complaining of increased HR and weight gain. She was admitted with atrial fibrillation and
acute HF. She was given Lasix 40 mg IV daily and converted to sinus rhythm spontaneously. She was discharged home the next day. She was seen in the office 05/18/2024 and was noted to be in sinus rhythm. She continued to have cough and dyspnea on
exertion. Lasix 20 mg was resumed. She had chest x-ray 05/22/2024 which showed small to moderate bilateral pleural effusions. Continue to feel intermittent palpitations and worsening shortness of breath and return to emergency department 05/24/2024.
EKG showed sinus rhythm. Repeat chest x-ray 05/24/2024 showed stable bilateral pleural effusions. Troponin was negative. proBNP 441. She was provided Lasix 40 mg IV in emergency department.
PMH:
Recent admission for PFA ablation, pericardial effusion 05/09/24 until 05/11/24
Paroxysmal Afib
s/p PFA ablation VOLT trial 05/09/24
Chronic Eliquis OAC
s/p pericardial effusion with drain 05/09/24, no recurrence on echo 05/14/24
Pleural effusions
HTN
Hyperlipidemia
Sjogren's syndrome
osteoporosis
Past Medical History
Past Medical History: GERD and Other (in HPI)
Past Surgical History: Cardiac (Afib ablation 05/09/24, pericardiocentesis 05/09/24), Gynecological (breast surgery) and Orthopedic
Social History
Tobacco: Non-Smoker
Alcohol: None
Drug: None
Personal:
Living: With Family
Family History
Family History: CAD
Allergies / Home Medications
Allergy/AdvReac Type Severity Reaction Status Date / Time
doxycycline Allergy Rash Verified 05/24/24 17:21
�Medication �Instructions �Recorded �Confirmed �Type
apixaban 5 mg tablet (Eliquis) 5 mg PO BID cardiac issues #20 tabs 11/11/22 05/24/24 Rx
atorvastatin 40 mg tablet 40 mg PO DAILY High Cholesterol 11/11/22 05/24/24 History
lisinopril 40 mg tablet 40 mg PO HS Blood Pressure 11/11/22 05/24/24 History
pilocarpine HCl 5 mg tablet 5 mg PO HS Sjogren syndrome 11/11/22 05/24/24 History
vitamin E 670 mg (1,000 unit) 2,400 mg PO HS Supplement 11/11/22 05/24/24 History
capsule
diltiazem HCl 120 mg capsule,24 120 mg PO DAILY #30 caps 10/21/23 05/24/24 Rx
hr,extended release
denosumab 60 mg/mL subcutaneous 60 mg SC [id number] osteoporosis 05/01/24 05/24/24 History
syringe (Prolia)
zolpidem 5 mg tablet 5 mg PO HSPRN PRN sleep 05/01/24 05/24/24 History
calcium carbonate 600 mg-vitamin 1 tab PO HS Supplement 05/09/24 05/24/24 History
D3 20 mcg (800 unit) chewable
tablet (Caltrate 600 plus D)
cholecalciferol (vitamin D3) 50 50 mcg PO MOWEFR Supplement 05/14/24 05/24/24 History
mcg (2,000 unit) tablet (Vitamin
D3)
cyclosporine 0.09 % eye drops in a 1 drp BOTH EYES BID dry eyes 05/14/24 05/24/24 History
dropperette (Cequa)
famotidine 20 mg tablet 20 mg PO BIDPRN PRN gerd 05/14/24 05/24/24 History
magnesium oxide 400 mg PO HS Supplement 05/14/24 05/24/24 History
pantoprazole 40 mg tablet,delayed 40 mg PO DAILYPRN PRN gerd 05/14/24 05/24/24 History
release (Protonix)
polyethylene glycol 3350 17 gram 17 g PO DAILYPRN PRN constipation 05/14/24 05/24/24 History
oral powder packet (Miralax)
therapeutic multivitamin 1 tab PO DAILY Supplement 05/14/24 05/24/24 History
acetaminophen 500 mg tablet 1,000 mg PO Q6HPRN PRN mild pain 05/24/24 05/24/24 History
(Tylenol Extra Strength)
flecainide 50 mg tablet 50 mg PO Q12H Arrhythmia 05/24/24 05/24/24 History
furosemide 40 mg tablet 20 mg PO DAILY Fluid 05/24/24 05/24/24 History
retention/Swelling
Review of Systems
-
History Source: Patient
All other systems: Negative unless noted
Physical Exam
Vital Signs
Temp Pulse Resp BP Pulse Ox
98.6 F 84 20 142/77 94
05/25/24 07:30 05/25/24 07:30 05/25/24 07:30 05/25/24 07:30 05/25/24 07:30
GEN: No distress, awake, Ox3
HEENT: supple, anicteric, mmm
LUNGS: absent BS at bases Lt>Rt, no wheezes/rales
CV: Reg, S1/S2, 1/6 syst LSB, no murmur
ABD: soft, BS+, NT/ND
EXT: No edema, clubbing or cyanosis
NEURO: Gross non-focal
SKIN: No rash
Lab Results
05/25/24 07:38
05/25/24 07:38
Troponin I < 0.012 ng/ml 05/24/24 18:42
Yvt-W-Fkjhzgpyesy Pept 441 pg/ml 05/24/24 18:42
Impression / Plan
-
PCP: Pankaj Ansari
Cardiology: Dr. Maty Woods
Impression:
Presented 05/24/2024 with progressive shortness of breath, cough, fatigue
Bilateral pleural effusions
Recent admission for PFA ablation, pericardial effusion 05/09/24 until 05/11/24
Paroxysmal Afib
s/p PFA ablation VOLT trial 05/09/24
Chronic Eliquis OAC
s/p pericardial effusion with drain 05/09/24, no recurrence on echo 05/14/24
HTN
Hyperlipidemia
Sjogren's syndrome
osteoporosis
Echo 05/14/2024: EF 60 to 65%, normal RV size and function, trivial pericardial effusion, pleural effusion is present
Plan:
-Presented 05/24/2024 with progressive shortness of breath, cough, fatigue
-Weight is down 4 lbs overnight with Lasix 40 mg IV. Would continue IV diuresis for another 24 hours then transition to oral Lasix. 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 She does not appear to be in acute heart failure.
-Follow daily weights
-Bilateral pleural effusions on CXR Lt>Rt. IR has been consulted for possible thoracentesis
-Encourage incentive spirometer as there may be a component of atelectasis
-Given pericardial effusion s/p thoracentesis 05/09/24 would recheck limited echo
-History of PAfib. Remains in sinus rhythm. Cont Cardizem CD and Eliquis
-Cont usual dose of lisinopril 40 mg daily and Cardizem CD 120 mg daily
HPI 05/25/2024:
She has past medical history significant for hypertension, hyperlipidemia, Sjogren's syndrome, osteoporosis, paroxysmal atrial fibrillation on chronic anticoagulation with Eliquis, pericardial effusion status post pericardiocentesis who presented to
ED 05/24/2024 with increased SOB, cough and palpitations. Patient had a PFA ablation for known paroxysmal Afib on . Procedure complicated by pericardial effusion that was treated with pericardiocentesis and drain. Patient improved and was
discharged to home 05/11/24. Repeat echocardiogram as outpatient 05/14/2024 showed trivial pericardial effusion. Later that evening she called the office complaining of increased HR and weight gain. She was admitted with atrial fibrillation and
acute HF. She was given Lasix 40 mg IV daily and converted to sinus rhythm spontaneously. She was discharged home the next day. She was seen in the office 05/18/2024 and was noted to be in sinus rhythm. She continued to have cough and dyspnea on
exertion. Lasix 20 mg was resumed. She had chest x-ray 05/22/2024 which showed small to moderate bilateral pleural effusions. Continue to feel intermittent palpitations and worsening shortness of breath and return to emergency department 05/24/2024.
EKG showed sinus rhythm. Repeat chest x-ray 05/24/2024 showed stable bilateral pleural effusions. Troponin was negative. proBNP 441. She was provided Lasix 40 mg IV in emergency department.
Data Reviewed
-
EKG: Report Reviewed by me, Discussed with Physician and Discussed with Patient
Radiology: Report Reviewed by me, Discussed with Physician and Discussed with Patient
Labs: Labs Reviewed by me, Discussed with Physician and Discussed with Patient
Old Records: Reviewed
--- NOTE | 2024-05-25 09:33 | W.PN.HOSP.TC ---
Today's Communication/Plan
-
f/w IR whether needs tapping
ok to c/w Lasix
Assessment / Plan
Assessment / Plan
Physical Exam
General: Comfortable and Conversant; No Pain, Fever or Chills
HEENT: NormoCephalic, Anicteric, Moist mucous membranes, PERRLA, Naplate Conjunctivae and No Ptosis
Respiratory: Other (diminished bilateral bases) L>R
Cardiac: S1/S2
GI: Soft, Non Tender, Non Distended, Normal Bowel Sounds
Genito-urinary: no hematuria
Musculoskeletal: No Clubbing, No Cyanosis and No Edema
Skin: Warm and Dry; No Rash or Jaundice
Neuro: AO x 3, No Motor Deficits, Nonfocal/grossly intact, Cranial Nerves Intact and No Sensory Deficits; No Slurred Speech, Facial Droop or Tremors
Psych: Calm
#Acute bilateral pleural effusions
Seems L>R per clinical exam
I reached out to IR
98% RA
-Consult IR for thoracentesis
#Doubt heart failure
I think her effusion is reactive
ok to c/w Lasix
- consult [facility] cardiology
#A-fib paroxysmal original Dx 2021
#Hx status post ablation 05/09/2024 Dr. Woods complicated by pericardial tamponade requiring pericardiocentesis
#Recent A-fib with RVR 05/14/2024 soft corrected
-Continue diltiazem 120 mg daily, Eliquis 5 mg twice daily
-Continue flecainide 50 mg every 12 hours
#HTN�benign
-Continue lisinopril 40 mg at bedtime
#HLD
-Continue statin
#Sjogren's syndrome
-Continue pilocarpine 5 mg at bedtime, eyedrops
#GERD
-Continue Protonix, Pepcid
#Osteoporosis
Takes Prolia 60 mg SQ every 6 months unknown last dose
DVT prophylaxis
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
Total time spent to see the patient, examine the patient on the floor, review data and lab results, discuss the treatment plan with the patient, nursing staff around 55 minutes
Anticipated Discharge: Within 24 hours
Subjective/Interval History
-
Date of Service: May 25, 2024
No chest pain
No fevers
Objective Data
-
Labs:
Laboratory Results
05/25/24
07:38
WBC 6.5
Hgb 10.2 L
Hct 30.5 L
Plt Count 525 H
Sodium 137
Potassium 4.2
Chloride 101
Carbon Dioxide 26
BUN 12
Creatinine 0.7
Glucose 105 H
Calcium 9.0
Vital Signs:
Vital Signs
Temp Pulse Resp BP Pulse Ox
98.6 F 84 20 142/77 94
05/25/24 07:30 05/25/24 07:30 05/25/24 07:30 05/25/24 07:30 05/25/24 07:30
I&O
05/24/24 05/25/24 05/26/24
06:59 06:59 06:59
Intake Total 840 / 840
Balance 840 / 840
--- NOTE | 2024-05-25 10:15 | CON.PUL ---
Consultation
Consultation Request
Date/Time Consultation Requested: 05/25/2024644
Date/Time Consultation Performed: 05/25/2024927
Requesting Provider: Dr. Mott
Performing Provider: Dr. Enrique
Reason for Consultation: SOB
Medical History
-
Chief Complaint: SOB
History of Present Illness:
73-year-old female non-smoker with a past medical history of A-fib s/p ablation on Eliquis, history of pericardial effusion with tamponade s/p pericardiocentesis, hypertension, history of Sjogren syndrome and osteoporosis who presents with SOB.
Patient recently hospitalized from 05/14 - 05/15/2024 due to acute decompensated heart failure with paroxysmal A-fib with plans for cardioversion, which was not needed as patient converted without intervention. She also had elevated troponin at that
time likely due to demand ischemia. She was sent home on 05/15 with instruction to follow-up with cardiology. Last visit with cardiology on 05/18/2024 with Dee Dee Manriquez PA-C. She endorsed occasional chest heaviness at that time with AYALA +
persistent dry cough. No SOB at rest, orthopnea or PND. She is on flecainide 50 mg twice daily + Cardizem 120 mg daily. Repeat echo was planned for 4-6 weeks to assess for A-fib s/p ablation. Her baseline dry weight is about 146 pounds. She was
told to continue Lasix 20 mg daily at this last office visit. Currently, she notes racing heartbeat that occurs with activity. In the ER she was afebrile to 98 �F, pulse rate 83, breathing at 16 breaths/min, BP 132/76 and SpO2 98% on room air.
Labs showed WBC was WNL at 7.5, Hb 10, platelets 448, serum bicarbonate 19, ALT slightly elevated 47, troponin negative at <0.012, proBNP 441, with CXR showing bilateral pleural effusions, stable from recent CXR on 05/22/2024. In the ER she was given
40 mg IV Lasix, and admitted to the hospitalist service with cardiology consulted. Today, IR performed left-sided thoracentesis removing 550 cc of clear ezra-colored fluid. Pulmonary service now consulted for additional management/recommendations.
When I saw the patient, she says she feels much better since having the thoracentesis. She is currently on room air breathing comfortably. She denies chest pain, headache, fevers or chills. She did have a cough earlier but that has now markedly
improved.
PMHx: Paroxysmal A-fib (first detected in 10/2021) on Eliquis with Hx of PVI c/b pericardial effusion s/p pericardiocentesis, hypertension, LVH, insomnia, dyslipidemia, vertigo, osteoporosis, Sjogren's syndrome
PSHx: Right knee ACL reconstruction, breast surgery, laser eye surgery (right)
Past Medical History
Past Medical History: Other (Above as per HPI)
Past Surgical History: Other (Above as per HPI)
Social History
Tobacco: Non-smoker
Alcohol: Occasional
Drug: None
Family History
Family History: CAD (Father; brother: History of [place] in his 70s) and Other (Mother: Alzheimer's disease; maternal grandmother: Pacemaker requirement)
Allergies / Home Medications
Allergies
Allergy/AdvReac Type Severity Reaction Status Date / Time
doxycycline Allergy Rash Verified 05/24/24 17:21
Home Medications
�Medication �Instructions �Recorded �Confirmed �Last Taken �Type
apixaban 5 mg tablet (Eliquis) 5 mg PO BID cardiac issues #20 tabs 11/11/22 05/24/24 05/24/24 Rx
atorvastatin 40 mg tablet 40 mg PO DAILY High Cholesterol 11/11/22 05/24/24 05/24/24 History
lisinopril 40 mg tablet 40 mg PO HS Blood Pressure 11/11/22 05/24/24 05/23/24 History
pilocarpine HCl 5 mg tablet 5 mg PO HS Sjogren syndrome 11/11/22 05/24/24 05/23/24 History
vitamin E 670 mg (1,000 unit) 2,400 mg PO HS Supplement 11/11/22 05/24/24 05/23/24 History
capsule
diltiazem HCl 120 mg capsule,24 120 mg PO DAILY #30 caps 10/21/23 05/24/24 05/24/24 Rx
hr,extended release
denosumab 60 mg/mL subcutaneous 60 mg SC [id number] osteoporosis 05/01/24 05/24/24 Unknown History
syringe (Prolia)
zolpidem 5 mg tablet 5 mg PO HSPRN PRN sleep 05/01/24 05/24/24 05/13/24 History
calcium carbonate 600 mg-vitamin 1 tab PO HS Supplement 05/09/24 05/24/24 05/23/24 History
D3 20 mcg (800 unit) chewable
tablet (Caltrate 600 plus D)
cholecalciferol (vitamin D3) 50 50 mcg PO MOWEFR Supplement 05/14/24 05/24/24 05/23/24 History
mcg (2,000 unit) tablet (Vitamin
D3)
cyclosporine 0.09 % eye drops in a 1 drp BOTH EYES BID dry eyes 05/14/24 05/24/24 05/24/24 History
dropperette (Cequa)
famotidine 20 mg tablet 20 mg PO BIDPRN PRN gerd 05/14/24 05/24/24 Unknown History
magnesium oxide 400 mg PO HS Supplement 05/14/24 05/24/24 05/23/24 History
pantoprazole 40 mg tablet,delayed 40 mg PO DAILYPRN PRN gerd 05/14/24 05/24/24 Unknown History
release (Protonix)
polyethylene glycol 3350 17 gram 17 g PO DAILYPRN PRN constipation 05/14/24 05/24/24 Unknown History
oral powder packet (Miralax)
therapeutic multivitamin 1 tab PO DAILY Supplement 05/14/24 05/24/24 05/24/24 History
acetaminophen 500 mg tablet 1,000 mg PO Q6HPRN PRN mild pain 05/24/24 05/24/24 05/24/24 History
(Tylenol Extra Strength)
flecainide 50 mg tablet 50 mg PO Q12H Arrhythmia 05/24/24 05/24/24 05/24/24 History
furosemide 40 mg tablet 20 mg PO DAILY Fluid 05/24/24 05/24/24 05/24/24 History
retention/Swelling
Review of Systems
-
History Source: Patient
All other systems: Negative unless noted
Vitals / Labs / Diagnostic Testing
Vital Signs
Temp Pulse Resp BP Pulse Ox
98.6 F 84 20 142/77 94
05/25/24 07:30 05/25/24 07:30 05/25/24 07:30 05/25/24 07:30 05/25/24 07:30
Lab Data
05/25/24 07:38
05/25/24 07:38
Laboratory Results
05/24/24
19:55
PT 16.0 H
INR 1.27
Diagnostic Testing:
Physical Exam
-
HEENT: Normocephalic and Anicteric
Cardiovascular: S1/S2 and Peripheral Edema (negative)
Respiratory: Wheeze (negative), Rales (left base), Rhonchi (negative), Non-Labored Respirations and Other (Diminished breath sounds at right base)
GI: Soft, Non Distended, Non Tender and Normal Bowel Sounds
Neurology: AO x 3 and Tremors (negative)
Skin: Warm and Dry
General: Respiratory Distress (negative), Comfortable, Chills (negative) and Sweats (negative)
Assessment
-
Assessment: 73-year-old female non-smoker with a past medical history of A-fib s/p ablation on Eliquis, history of pericardial effusion with tamponade s/p pericardiocentesis, hypertension, history of Sjogren syndrome and osteoporosis who presents
with SOB. Patient recently hospitalized from 05/14 - 05/15/2024 due to acute decompensated heart failure with paroxysmal A-fib with plans for cardioversion, which was not needed as patient converted without intervention. She also had elevated
troponin at that time likely due to demand ischemia. She was sent home on 05/15 with instruction to follow-up with cardiology. Last visit with cardiology on 05/18/2024 with Dee Dee Manriquez PA-C. She endorsed occasional chest heaviness at that time
with AYALA + persistent dry cough. No SOB at rest, orthopnea or PND. She is on flecainide 50 mg twice daily + Cardizem 120 mg daily. Repeat echo was planned for 4-6 weeks to assess for A-fib s/p ablation. Her baseline dry weight is about 146
pounds. She was told to continue Lasix 20 mg daily at this last office visit. Currently, she notes racing heartbeat that occurs with activity. In the ER she was afebrile to 98 �F, pulse rate 83, breathing at 16 breaths/min, BP 132/76 and SpO2 98%
on room air. Labs showed WBC was WNL at 7.5, Hb 10, platelets 448, serum bicarbonate 19, ALT slightly elevated 47, troponin negative at <0.012, proBNP 441, with CXR showing bilateral pleural effusions, stable from recent CXR on 05/22/2024. In the ER
she was given 40 mg IV Lasix, and admitted to the hospitalist service with cardiology consulted. Today, IR performed left-sided thoracentesis removing 550 cc of clear ezra-colored fluid. Pulmonary service now consulted for additional
management/recommendations.
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
Impression:
#Bilateral pleural effusions (L >R) s/p left-sided thoracentesis (05/25/2024)
#Acute decompensated heart failure/acute HFpEF
#Small pericardial effusion (slightly worsened compared to prior echo from 05/14/2024)
#Anemia (baseline Hb 12.5�14g/dL)
#Thrombocytosis, likely reactive
Plan:
- IR performed left-sided thoracentesis today, removing 550 cc of exudative fluid, suspected to be pseudo-exudative in the setting of diuresis
- She feels markedly better since thoracentesis
- Continue with IV Lasix, trending UOP and sCr
- Re-assess volume status daily
- Replete electrolytes with K>4, Mg>2
- Repeat CXR tomorrow to assess for re-accumulation of pleural fluid
- Cardiology on board - recs appreciated
- Maintain SpO2 >90-94% with supplemental O2 as needed
- Incentive spirometer encouraged
- Maintain euglycemia with goal BG >100 and <180
- Trend Hb and transfuse to keep Hb>7g/dL; trend plt count
- prn nebulized bronchodilators - pt not currently bronchospastic
- DVT ppx
Pulmonary service will continue to follow along.
Data:
CXR 05/24/2024: Stable bilateral pleural effusions (compared to prior CXR from 05/22/2024); the mid to upper lung zones are clear. Stable mild to moderate cardiomegaly. No significant vascular congestion. No pneumothorax.
Total time spent today was 55 minutes for this encounter. Time includes reviewing laboratory test/imaging results, reviewing pertinent medical records, obtaining and reviewing medical history, performing an appropriate exam, ordering medications,
tests and procedures. Time also includes documentation of this encounter, coordinating patient care and communicating with other healthcare professionals. Total time does not include separately billed tests performed on this date of service.
[2024-05-25 10:41] LABS: Body Fluid pH 7.51
[2024-05-25 10:59] LABS: Body Fluid Amylase < 30 U/L; Body Fluid Glucose 119 mg/dl; Body Fluid LDH 232 U/L; Body Fluid Protein 3.6 g/dl; Body Fluid Triglycerides < 30 mg/dl
[2024-05-25] MEDS: VITAMIN D3 (cholecalciferol) 50 MCG PO (11:22)
[2024-05-25] MEDS: TAMBOCOR 50 MG PO ×2 (11:22→22:08)
--- NOTE | 2024-05-25 11:37 | PTOTSP ---
Patient demonstrates independence with functional mobility and ambulation without use of AD.
Does not demonstrate further skilled therapy at this time and will be discharged. If needs, change, please re-consult.
[2024-05-25 12:08] LABS: Body Fluid Mononuclear 78.1 %; Body Fluid Polymorphonuclear 21.9 %; Body Fluid WBC 716 /CUMM
[2024-05-25 12:15] LABS: Body Fluid Second Tech EM
[2024-05-25] MEDS: TYLENOL 1000 MG PO ×2 (12:15→20:12)
[2024-05-25] MEDS: PEPCID 20 MG PO (12:16)
[2024-05-25] MEDS: SALAGEN 5 MG PO (22:08)
[2024-05-25] MEDS: ZESTRIL 40 MG PO (22:08)
[2024-05-25] MEDS: AMBIEN 5 MG PO (22:09)
[2024-05-26 03:43] VITALS: BP 107/67
[2024-05-26 06:00] VITALS: BMI 25.0
[2024-05-26 07:30] VITALS: BP 110/63
--- NOTE | 2024-05-26 09:04 | W.PN.HOSP.TC ---
Addendum entered and electronically signed by Alicia Mott MD 05/26/24 14:04:
Addendum
Patient was seen by cad librarian, okay to go home on oral Lasix and incentive spirometer.
I discussed with pulmonary, agreed to discharge plan with follow-up chest radiography.
Discharge instruction discussed with patient and she was anxious to go home. She felt better with no hypoxia or distress. Follow-up chest x-ray showed stable effusion with no pneumothorax.
Discussed with nursing staff
Total discharge time spent to see the patient, examine the patient on the floor, review data and lab results, discuss the discharge plan with the patient, pulmonary & cardiology doctors, nursing staff around 65 minutes
Original Note:
Today's Communication/Plan
-
Lung exam today : more air both lungs, some basal crackles heard both sides
c/w Lasix, change to oral
Effusion c/w reactive process.
f/w chest x ray
Assessment / Plan
Assessment / Plan
Physical Exam
General: Comfortable and Conversant; No Pain, Fever or Chills
HEENT: NormoCephalic, Anicteric, Moist mucous membranes, PERRLA, [place] Conjunctivae and No Ptosis
Respiratory: more air both lungs, some basal crackles heard both sides
Cardiac: S1/S2
GI: Soft, Non Tender, Non Distended, Normal Bowel Sounds
Genito-urinary: no hematuria
Musculoskeletal: No Clubbing, No Cyanosis and No Edema
Skin: Warm and Dry; No Rash or Jaundice
Neuro: AO x 3, No Motor Deficits, Nonfocal/grossly intact, Cranial Nerves Intact and No Sensory Deficits; No Slurred Speech, Facial Droop or Tremors
Psych: Calm
#Acute bilateral pleural effusions
s/p ultrasound-guided thoracentesis, yielding 550 cc of clear ezra pleural fluid.
Appreciate IR help. Fluid analysis showed exudative ( more than transudative) features.
Culture is no growth so far
#Doubt heart failure, no weight gain, no elevated JVD, low Pro-BNP
Change Lasix to oral
Effusion is reactive \\
# Traumatic pericardial effusion post ablation procedure
Repeat echo showed small effusion, no hemodynamic compromise.
#A-fib paroxysmal original Dx 2021
#Hx status post ablation 05/09/2024 Dr. Woods complicated by pericardial tamponade requiring pericardiocentesis
#Recent A-fib with RVR 05/14/2024 soft corrected
-Continue diltiazem 120 mg daily, Eliquis 5 mg twice daily
-Continue flecainide 50 mg every 12 hours
#HTN�benign
-Continue Lasix, Cardizem, lisinopril 40 mg at bedtime
#HLD
-Continue statin
#Sjogren's syndrome
-Continue pilocarpine 5 mg at bedtime, eyedrops
#GERD
#Osteoporosis
DVT prophylaxis
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
Total time spent to see the patient, examine the patient on the floor, review data and lab results, discuss the treatment plan with the patient, nursing staff around 55 minutes
Anticipated Discharge: 24 - 48 hours
Subjective/Interval History
-
Date of Service: May 26, 2024
Feels better after thoracentesis
No chest pain
Objective Data
-
Vital Signs:
Vital Signs
Temp Pulse Resp BP Pulse Ox
98.8 F 82 16 110/63 93
05/26/24 07:30 05/26/24 07:30 05/26/24 07:30 05/26/24 07:30 05/26/24 07:30
I&O
05/25/24 05/26/24 05/27/24
06:59 06:59 06:59
Intake Total 840 / 840 540 / 540
Balance 840 / 840 540 / 540
[2024-05-26] MEDS: LIPITOR 40 MG PO (09:43)
[2024-05-26] MEDS: TAMBOCOR 50 MG PO (09:43)
[2024-05-26] MEDS: CARDIZEM CD 120 MG PO (09:43)
[2024-05-26] MEDS: PEPCID 20 MG PO (09:43)
[2024-05-26] MEDS: ELIQUIS 5 MG PO (09:43)
[2024-05-26] MEDS: RESTASIS 0.05% OPHTHALMIC EMULSION 1 DROPS BOTH EYES (09:44)
[2024-05-26] MEDS: LASIX 40 MG PO (09:44)
[2024-05-26] MEDS: LASIX IV (09:47)
--- NOTE | 2024-05-26 09:51 | W.PN.PUL3 ---
Today's Communication / Plan
-
Transition from IV to PO lasix
Outpatient CXR will be arranged to assess stability of pleural effusions
Continue with diuresis and follow-up with cardiology
Consume low-sodium/fluid restricted diet
Patient being prepared for discharge home today. Outpatient follow-up will be arranged. Pulmonary service will now sign off. Please reconsult if there are any additional questions/concerns, or if patient's respiratory status deteriorates.
Assessment
-
Assessment: 73-year-old female non-smoker with a past medical history of A-fib s/p ablation on Eliquis, history of pericardial effusion with tamponade s/p pericardiocentesis, hypertension, history of Sjogren syndrome and osteoporosis who presents
with SOB. Patient recently hospitalized from 05/14 - 05/15/2024 due to acute decompensated heart failure with paroxysmal A-fib with plans for cardioversion, which was not needed as patient converted without intervention. She also had elevated
troponin at that time likely due to demand ischemia. She was sent home on 05/15 with instruction to follow-up with cardiology. Last visit with cardiology on 05/18/2024 with Dee Dee Manriquez PA-C. She endorsed occasional chest heaviness at that time
with AYALA + persistent dry cough. No SOB at rest, orthopnea or PND. She is on flecainide 50 mg twice daily + Cardizem 120 mg daily. Repeat echo was planned for 4-6 weeks to assess for A-fib s/p ablation. Her baseline dry weight is about 146
pounds. She was told to continue Lasix 20 mg daily at this last office visit. Currently, she notes racing heartbeat that occurs with activity. In the ER she was afebrile to 98 �F, pulse rate 83, breathing at 16 breaths/min, BP 132/76 and SpO2 98%
on room air. Labs showed WBC was WNL at 7.5, Hb 10, platelets 448, serum bicarbonate 19, ALT slightly elevated 47, troponin negative at <0.012, proBNP 441, with CXR showing bilateral pleural effusions, stable from recent CXR on 05/22/2024. In the ER
she was given 40 mg IV Lasix, and admitted to the hospitalist service with cardiology consulted. Today, IR performed left-sided thoracentesis removing 550 cc of clear ezra-colored fluid. Pulmonary service now consulted for additional
management/recommendations.
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
Impression:
#Bilateral pleural effusions (L >R) s/p left-sided thoracentesis (05/25/2024)
#Acute decompensated heart failure/acute HFpEF
#Small pericardial effusion (slightly worsened compared to prior echo from 05/14/2024)
#Anemia (baseline Hb 12.5�14g/dL)
#Thrombocytosis, likely reactive
Plan:
- IR performed left-sided thoracentesis yesterday, removing 550 cc of exudative fluid, suspected to be pseudo-exudative in the setting of diuresis
- She feels markedly better since thoracentesis
- Fluid Cx from pleural fluid shows NGTD
- Cytopathology is pending --> follow up
- Transition from IV to PO Lasix, trending UOP and sCr
- Replete electrolytes with K>4, Mg>2
- CXR today shows stable R-pleural effusion with minimal residual left-sided pleural effusion
- Cardiology on board - recs appreciated
- Maintain SpO2 >90-94% with supplemental O2 as needed
- Incentive spirometer encouraged
- Maintain euglycemia with goal BG >100 and <180
- Trend Hb and transfuse to keep Hb>7g/dL; trend plt count
- prn nebulized bronchodilators - pt not currently bronchospastic
- DVT ppx
Patient being prepared for discharge home today. Outpatient follow-up will be arranged. Pulmonary service will now sign off. Thank you for allowing us to be involved in the care of this patient. Please reconsult if there are any additional
questions/concerns, or if patient's respiratory status deteriorates.
Data:
CXR 05/24/2024: Stable bilateral pleural effusions (compared to prior CXR from 05/22/2024); the mid to upper lung zones are clear. Stable mild to moderate cardiomegaly. No significant vascular congestion. No pneumothorax.
CXR 05/26/2024: There are stable small bilateral pleural effusions larger on the right than the left; There is new subsegmental atelectasis in the retrocardiac left lung base
Total time spent today was 35 minutes for this encounter. Time includes reviewing laboratory test/imaging results, reviewing pertinent medical records, obtaining and reviewing medical history, performing an appropriate exam, ordering medications,
tests and procedures. Time also includes documentation of this encounter, coordinating patient care and communicating with other healthcare professionals. Total time does not include separately billed tests performed on this date of service.
Subjective Data
-
Date of Service:
Date of Service: May 26, 2024
Chief Complaint: Pulmonary Follow Up and Dyspnea Follow Up
Subjective:
Patient seen and evaluated today at bedside. She continues to feel well following her thoracentesis yesterday. Denies chest pain, PATRICIO, abdominal pain, fevers or chills. Being prepared for discharge home today.
Review of Systems
General: Other (Negative unless mentioned above)
Objective Data
Data Reviewed
Vital Signs / I&O / Oxygen:
Vital Signs
Temp Pulse Resp BP Pulse Ox
98.8 F 82 16 110/63 93
05/26/24 07:30 05/26/24 09:43 05/26/24 07:30 05/26/24 09:43 05/26/24 07:30
Intake and Output
05/25/24 05/26/24 05/27/24
06:59 06:59 06:59
Intake Total 840 / 840 540 / 540
Balance 840 / 840 540 / 540
SaO2 93
Physical Exam
General: Respiratory Distress (negative), Comfortable, Chills (negative) and Sweats (negative)
HEENT: Normocephalic and Anicteric
Cardiovascular: S1-S2 and Peripheral Edema (negative)
Respiratory: Wheeze (negative), Crackles (Left base), Rhonchi (negative), Non-Labored Respirations and Other (Diminished breath sounds at right base)
GI: Soft, Non Distended, Non Tender and Normal Bowel Sounds
Neurology: AO x 3 and Tremors (negative)
Skin: Warm, Dry and Jaundice (negative)
Labs/Micro/Reports
Lab Data
05/25/24 07:38
05/25/24 07:38
Microbiology
05/25/24 10:07 Pleural Fluid Body Fluid Culture - Preliminary
No Growth After 18-24 Hours
05/25/24 10:07 Pleural Fluid Gram Stain - Preliminary
05/25/24 10:07 Pleural Fluid Fungal Culture - Preliminary
Culture in progress.
Positive cultures are reported as soon as detected.
Final report to follow in four to five weeks.
[2024-05-26 11:15] VITALS: BP 109/69
--- NOTE | 2024-05-26 11:21 | W.PN.CARDCBS ---
Addendum entered and electronically signed by Pardeep Ibanez MD 05/26/24 12:54:
I saw and examined the patient.
The TURNTABLE ENGINEER or PA's note was reviewed and I agree with the note.
Comment: General: Well developed, well nourished in NAD.
Neck: Supple, no JVD, HJR, carotids +2 B/L, no bruits bilaterally.
Heart: Non displaced PMI, RRR, no murmurs, No S3, S4, no rubs.
Lungs: Scattered rhonchi at the bases
Extremities: No clubbing, cyanosis or edema bilaterally.
Neuro: Grossly nonfocal, awake, alert and oriented x3.
Stable cardiology status for discharge. Discharged on Lasix 40 mg daily. Recheck echo in 1 week. Follow-up arranged. Discussed with primary service
Original Note:
Today's Communication / Plan
-
po lasix 40mg daily
effusion appears exudative
IS
repeat echo next week to reeval pericardial effusion
OP cardiac follow up arranged
Impression / Plan
-
PCP: Pankaj Ansari
Cardiology: Dr. Maty Woods
Impression:
Presented 05/24/2024 with progressive shortness of breath, cough, fatigue
Bilateral pleural effusions s/p L thoracentesis 05/25/24
Recent admission for PFA ablation, pericardial effusion 05/09/24 until 05/11/24
Paroxysmal Afib
s/p PFA ablation VOLT trial 05/09/24
Chronic Eliquis OAC
s/p pericardial effusion with drain 05/09/24, no recurrence on echo 05/14/24
HTN
Hyperlipidemia
Sjogren's syndrome
osteoporosis
Echo 05/14/2024: EF 60 to 65%, normal RV size and function, trivial pericardial effusion, pleural effusion is present
Echo 05/25/2024: EF 60 to 65%, moderately dilated LA, small pericardial effusion
Plan:
-Presented 05/24/2024 with progressive shortness of breath, cough, fatigue
-Status post left thoracentesis 05/25/2024 for 550 cc of fluid. Appears to be exudative. work up per primary service
-Was on 20 mg p.o. Lasix prior to admission. Transitioned to 40 mg p.o. daily 05/26. Suspect she will not need long-term Lasix
-Encourage IS
-Repeat echo 05/25/2024 with possible slight increase in pericardial effusion compared to prior. Will repeat echo study next week
-History of PAfib. Remains in sinus rhythm. Cont Cardizem CD and Eliquis
-Cont usual dose of lisinopril 40 mg daily
-OP cardiac follow up arranged
-ok for DC to home today from cardiac standpoint
HPI 05/25/2024:
She has past medical history significant for hypertension, hyperlipidemia, Sjogren's syndrome, osteoporosis, paroxysmal atrial fibrillation on chronic anticoagulation with Eliquis, pericardial effusion status post pericardiocentesis who presented to
ED 05/24/2024 with increased SOB, cough and palpitations. Patient had a PFA ablation for known paroxysmal Afib on . Procedure complicated by pericardial effusion that was treated with pericardiocentesis and drain. Patient improved and was
discharged to home 05/11/24. Repeat echocardiogram as outpatient 05/14/2024 showed trivial pericardial effusion. Later that evening she called the office complaining of increased HR and weight gain. She was admitted with atrial fibrillation and
acute HF. She was given Lasix 40 mg IV daily and converted to sinus rhythm spontaneously. She was discharged home the next day. She was seen in the office 05/18/2024 and was noted to be in sinus rhythm. She continued to have cough and dyspnea on
exertion. Lasix 20 mg was resumed. She had chest x-ray 05/22/2024 which showed small to moderate bilateral pleural effusions. Continue to feel intermittent palpitations and worsening shortness of breath and return to emergency department 05/24/2024.
EKG showed sinus rhythm. Repeat chest x-ray 05/24/2024 showed stable bilateral pleural effusions. Troponin was negative. proBNP 441. She was provided Lasix 40 mg IV in emergency department.
Progress Note - Director Of Recruitment
Subjective
Date of Service: May 26, 2024
feeling improved. no CP. ambulatory in halls without issues
Objective
Labs:
05/25/24 07:38
05/25/24 07:38
Labs
Hgb 10.2 g/dL (12.0-16.0) L 05/25/24 07:38
Hct 30.5 % (37.0-47.0) L 05/25/24 07:38
Plt Count 525 10^3/uL (130-400) H 05/25/24 07:38
PT 16.0 Sec (11.4-14.6) H 05/24/24 19:55
INR 1.27 05/24/24 19:55
Sodium 137 mmol/L (135-145) 05/25/24 07:38
Potassium 4.2 mmol/L (3.5-5.1) 05/25/24 07:38
BUN 12 mg/dl (7-17) 05/25/24 07:38
Creatinine 0.7 mg/dL (0.6-1.0) 05/25/24 07:38
Glucose 105 mg/dl (70-99) H 05/25/24 07:38
Troponins
05/24/24
18:42
Troponin I < 0.012
Vital Signs and I&O:
Vital Signs
Temp Pulse Resp BP Pulse Ox
98.8 F 82 16 110/63 93
05/26/24 07:30 05/26/24 09:43 05/26/24 07:30 05/26/24 09:43 05/26/24 09:40
Vital Signs
Temp Pulse Resp BP Pulse Ox
98.8 F 82 16 110/63 93
05/26/24 07:30 05/26/24 09:43 05/26/24 07:30 05/26/24 09:43 05/26/24 09:40
Intake & Output
05/24/24 05/25/24 05/26/24 05/27/24
07:59 07:59 07:59 07:59
Intake Total 840 / 840 540 / 540
Balance 840 / 840 540 / 540
Physical Exam
Physical Exam
GEN: No distress, awake, alert, oriented x3. sitting in chair
HEENT: supple, anicteric, mmm, eomi
LUNGS: Few crackles at bases, no wheezes
CV: Reg, S1/S2, no murmur
ABD: soft, BS+, NT/ND
EXT: No cyanosis, clubbing, edema
NEURO: Gross non-focal
SKIN: Warm, pink, dry. No rash
[2024-05-26] MEDS: TYLENOL 1000 MG PO (13:13)
--- NOTE | 2024-05-26 14:00 | W.DCSUMMARY ---
Discharge Summary
Discharge Data
Date of Admission: 05/25/24
Date of Discharge: 05/26/24
-
Pending Results: No
Hospital Course
73 years old female presented with respiratory distress mostly on exertion. Patient was found to have left pleural effusion. Echocardiogram on May 25, 2024 showed left ventricular ejection fraction of 60 to 65%, moderately dilated left
atrium with a small pericardial effusion and no hemodynamic compromise. Patient had history of paroxysmal atrial fibrillation status post ablation in April 2024. She takes Eliquis treatment. Patient was evaluated by pulmonary doctor and
therapist radiation. She was given intravenous furosemide. Interventional radiologist did successful thoracentesis of left pleural effusion. Fluid analysis mostly consistent with exudative type. Post-thoracentesis chest x-ray and follow-up x-ray showed
stable finding without pneumothorax. Patient was advised to continue using incentive spirometer. She is scheduled to have follow-up in the outpatient setting with echocardiogram and chest radiography. She was given prescription for chest
radiography. Patient remained hemodynamically stable. Lasix dose was changed to 40 mg upon discharge. Patient was discharged in a stable condition.
Discharge Plan
-
Patient Disposition: Home (Routine Discharge)
Discharge Diagnosis/Procedures: Left pleural effusion status post thoracentesis
Diet: As tolerated
Others Tests: Chest x ray in 1-2 weeks
Referrals:
[facility] [Provider Group] - 05/31/24 2:00 pm (You have a follow-up echo study scheduled at [facility] in [facility]. Please call with questions)
Dee Dee Manriquez PA-C [Specified Professional Personl] - 06/06/24 8:00 am (You have a cardiology follow-up appointment at the [place] office with Dr. Rutledge's physician senior sales assistant, Dee Dee. Please call with questions)
Garry Enrique MD [Active] - in three to four weeks
Pankaj Ansari PA-C [Family Provider] - 05/29/24 1:00 pm
Maty Woods MD [Active] - 06/20/24 8:20 am (You have cardiology follow-up with Dr. Maty Woods June 20 at 8:20 AM in [address] [facility] which [facility] located behind the [facility]. If you are unable to make this appointment please
call [phone] to reschedule)
Prescriptions:
New
furosemide 40 mg Tablet
40 mg PO DAILY Qty: 30 0RF
Continued
atorvastatin 40 mg tablet
40 mg PO DAILY
vitamin E 670 mg (1,000 unit) Capsule
2,400 mg PO HS
Rx Instructions:
Pt confirmed that dose is 2,400
pilocarpine HCl 5 mg tablet
5 mg PO HS
lisinopril 40 mg tablet
40 mg PO HS
Eliquis 5 mg tablet
5 mg PO BID Qty: 20 0RF
diltiazem HCl 120 mg capsule,extended release 24 hr
120 mg PO DAILY Qty: 30 0RF
zolpidem 5 mg Tablet
5 mg PO HSPRN PRN (Reason: sleep)
Patient Comments:
05/24/24: last filled 08/02/23 for 90 tablets over 90 days at [facility] pharmacy
Prolia 60 mg/mL Syringe
60 mg SC [id number]
Rx Instructions:
Next dose due 07/2024
Caltrate 600 plus D 600 mg-20 mcg (800 unit) Tablet,Chewable
1 tab PO HS
polyethylene glycol 3350 [Miralax] 17 gram Powder In Packet
17 g PO DAILYPRN PRN (Reason: constipation)
therapeutic multivitamin Tablet
1 tab PO DAILY
famotidine 20 mg Tablet
20 mg PO BIDPRN PRN (Reason: gerd)
cholecalciferol (vitamin D3) [Vitamin D3] 50 mcg (2,000 unit) Tablet
50 mcg PO MOWEFR
magnesium oxide 400 mg magnesium Tablet
400 mg PO HS
Cequa 0.09 % Dropperette
1 drp BOTH EYES BID
pantoprazole [Protonix] 40 mg tablet,delayed release (DR/EC)
40 mg PO DAILYPRN PRN (Reason: gerd)
acetaminophen [Tylenol Extra Strength] 500 mg Tablet
1,000 mg PO Q6HPRN PRN (Reason: mild pain)
flecainide 50 mg Tablet
50 mg PO Q12H
Discontinued
furosemide 40 mg tablet
20 mg PO DAILY
Discharge Orders:
Discharge Patient (As Directed); Ordered 05/26/24
Ordered By: Alicia Mott
Discharge Date and Time
Print Language: SALVADOREAN
--- NOTE | 2024-05-26 14:17 | CM ---
Patient leaving room when Cm came to floor . Per Rn patient going home with spouse, walking to car. No needs.
From previous admits patient lives with in multi level home. Very independent, plays pickleball.
NO DME, no history of VNA or SNF
PCP Dr. Ansari
Pharmacy: [facility].
Plan;home no needs.
== END 2024-05-26 14:50 | disposition home or self-care (01) | DRG 291 ==
LOC: 4 EAST ACU 06:45
PROVIDERS: Clinical Nurse Specialist Family Health; Radiology Diagnostic Radiology; ADMITTING PHYSICIAN Hospitalist; ATTENDING PHYSICIAN Internal Medicine; CONSULT PHYSICIAN Internal Medicine Critical Care Medicine; EMERGENCY PHYSICIAN Emergency Medicine; FAMILY PHYSICIAN Physician Assistant Medical; OTHER PHYSICIAN Internal Medicine Cardiovascular Disease
PROC: 0W9B3ZX Drainage of Left Pleural Cavity, Percutaneous Approach, Diagnostic (ICD-10-PCS; 2024-05-25)
DX: I11.0 Hypertensive heart disease with heart failure (principal); I50.33 Acute on chronic diastolic (congestive) heart failure; J91.8 Pleural effusion in other conditions classified elsewhere; I31.39 Other pericardial effusion (noninflammatory); M35.00 Sjogren syndrome, unspecified; D64.9 Anemia, unspecified; Z79.01 Long term (current) use of anticoagulants; D75.839 Thrombocytosis, unspecified; E78.00 Pure hypercholesterolemia, unspecified; I48.0 Paroxysmal atrial fibrillation; K21.9 Gastro-esophageal reflux disease without esophagitis; K59.00 Constipation, unspecified; M81.0 Age-related osteoporosis without current pathological fracture; Z88.1 Allergy status to other antibiotic agents; Z79.899 Other long term (current) drug therapy; Z82.49 Family history of ischemic heart disease and other diseases of the circulatory system; Z87.891 Personal history of nicotine dependence; G47.00 Insomnia, unspecified
CPT/HCPCS: 88305; 93308; 32555; 71045; 71046; 80048; 80053; 82150; 82945; 83615; 83880; 83986; 84157; 84478; 84484; 85025; 85610; 87015; 87070; 87102; 87116; 87205; 87206; 88112; 89051; 93005; 97116; 97162; 97165; 99285

== ENCOUNTER → 2024-05-31 13:56 | Outpatient (REF) | payer MEDICARE, OTHER, SELFPAY | LOC: HWRCS 13:56 | PROVIDERS: ATTENDING PHYSICIAN Internal Medicine Cardiovascular Disease; FAMILY PHYSICIAN Physician Assistant Medical | DX: I31.39 Other pericardial effusion (noninflammatory) (principal); I50.33 Acute on chronic diastolic (congestive) heart failure | CPT/HCPCS: 93308 ==

== ENCOUNTER → 2024-06-04 11:29 | Outpatient (REF) | payer MEDICARE, OTHER, SELFPAY ==
[2024-06-04 13:43] LABS: Blood Urea Nitrogen 16 mg/dl (7-17); Calcium 9.8 mg/dl (8.4-10.2); Carbon Dioxide 25 mmol/L (22-30); Chloride 103 mmol/L (98-107); Glucose 94 mg/dl (70-99); Potassium 4.7 mmol/L (3.5-5.1); Sodium 140 mmol/L (135-145); eGFR > 60.00
== END ==
LOC: REG 11:29
PROVIDERS: ATTENDING PHYSICIAN Internal Medicine Cardiovascular Disease; FAMILY PHYSICIAN Physician Assistant Medical; OTHER PHYSICIAN Internal Medicine; OTHER PHYSICIAN Internal Medicine Cardiovascular Disease; OTHER PHYSICIAN Internal Medicine Critical Care Medicine
DX: J90 Pleural effusion, not elsewhere classified (principal); I10 Essential (primary) hypertension
CPT/HCPCS: 36415; 71046; 80048

== ENCOUNTER → 2024-06-15 12:26 | Outpatient (REF) | payer MEDICARE, OTHER, SELFPAY | LOC: RAD 12:26 | PROVIDERS: ATTENDING PHYSICIAN Physician Assistant Medical; FAMILY PHYSICIAN Physician Assistant Medical | DX: I31.39 Other pericardial effusion (noninflammatory) (principal) | CPT/HCPCS: 71046 ==

== ENCOUNTER → 2024-06-19 09:19 | Outpatient (REF) | payer MEDICARE, OTHER, SELFPAY | LOC: RCS 09:19 | PROVIDERS: ATTENDING PHYSICIAN Physician Assistant Medical; FAMILY PHYSICIAN Physician Assistant Medical | DX: I31.39 Other pericardial effusion (noninflammatory) (principal); I44.7 Left bundle-branch block, unspecified | CPT/HCPCS: 93308; 93321; 93325 ==

== ENCOUNTER → 2024-08-06 10:00 | Outpatient (REF) | payer MEDICARE, OTHER, SELFPAY ==
[2024-08-06 10:35] LABS: % Basophils 0.6 % (0-2); % Eosinophils 3.5 % (0-6); % Immature Granulocytes 0.4 % (0-0.5); % Lymphocytes 26.4 % (20.5-51.1); % Monocytes 12.7 % (1.7-9.3); % Neutrophils 56.4 % (42.2-75.2); Absolute Eosinophils 0.2 10^3/uL (0-0.7); Absolute Lymphocytes 1.3 10^3/uL (1.2-3.4); Absolute Monocytes 0.6 10^3/uL (0.1-0.6); Absolute Neutrophils 2.7 10^3/uL (1.4-6.5); Hematocrit 36.6 % (37.0-47.0); Hemoglobin 12.1 g/dL (12.0-16.0); Mean Corp Hgb Conc. 33.1 g/dL (33.0-37.0); Mean Corpuscular Hgb 29.4 pg (27.0-31.0); Mean Corpuscular Volume 88.8 fL (81.0-99.0); Mean Platelet Volume 8.6 fL (7.4-10.4); Nucleated Red Blood Cells % 0 %; Platelet Count 236 10^3/uL (130-400); Red Blood Cell Count 4.12 10^6/uL (4.20-5.40); Red Cell Dist. Width 14.7 % (11.5-14.5); White Blood Cell Count 4.8 10^3/uL (4.8-10.8)
[2024-08-06 11:50] LABS: ALT (SGPT) 36 U/L (0-35); AST (SGOT) 34 U/L (14-36); Albumin 4.7 g/dl (3.5-5.0); Alkaline Phosphatase 31 U/L (38-126); Blood Urea Nitrogen 17 mg/dl (7-17); Calcium 9.9 mg/dl (8.4-10.2); Carbon Dioxide 26 mmol/L (22-30); Chloride 103 mmol/L (98-107); Glucose 85 mg/dl (70-99); HDL Cholesterol 92 mg/dl; LDL Cholesterol, Calculated 68 mg/dl; Potassium 4.3 mmol/L (3.5-5.1); Sodium 142 mmol/L (135-145); Total Bilirubin 0.5 mg/dl (0.2-1.3); Total Cholesterol 170 mg/dl (50-199); Triglyceride 53 mg/dl (10-149); Very Low Density Lipoprotein 10 mg/dl (0-30); eGFR > 60.00
[2024-08-06 12:04] LABS: TSH 2.98 uIU/ml (0.47-4.68)
== END ==
LOC: REG 10:00
PROVIDERS: ATTENDING PHYSICIAN Physician Assistant Medical
DX: I10 Essential (primary) hypertension (principal); E78.2 Mixed hyperlipidemia; F51.01 Primary insomnia; M81.0 Age-related osteoporosis without current pathological fracture; M54.2 Cervicalgia; R79.89 Other specified abnormal findings of blood chemistry
CPT/HCPCS: 36415; 80053; 80061; 84443; 85025

== ENCOUNTER → 2024-08-23 10:48 | Outpatient (REF) | payer MEDICARE, OTHER, SELFPAY ==
[2024-08-23 12:16] LABS: % Basophils 0.2 % (0-2); % Eosinophils 1.6 % (0-6); % Immature Granulocytes 0.4 % (0-0.5); % Lymphocytes 10.6 % (20.5-51.1); % Monocytes 7.9 % (1.7-9.3); % Neutrophils 79.3 % (42.2-75.2); Absolute Eosinophils 0.1 10^3/uL (0-0.7); Absolute Lymphocytes 0.9 10^3/uL (1.2-3.4); Absolute Monocytes 0.7 10^3/uL (0.1-0.6); Absolute Neutrophils 6.5 10^3/uL (1.4-6.5); Hematocrit 38.5 % (37.0-47.0); Hemoglobin 12.8 g/dL (12.0-16.0); Mean Corp Hgb Conc. 33.2 g/dL (33.0-37.0); Mean Corpuscular Hgb 29.5 pg (27.0-31.0); Mean Corpuscular Volume 88.7 fL (81.0-99.0); Nucleated Red Blood Cells % 0 %; Platelet Count 277 10^3/uL (130-400); Red Blood Cell Count 4.34 10^6/uL (4.20-5.40); Red Cell Dist. Width 15.3 % (11.5-14.5); White Blood Cell Count 8.2 10^3/uL (4.8-10.8)
== END ==
LOC: REG 10:48
PROVIDERS: ATTENDING PHYSICIAN Physician Assistant Medical
DX: R71.0 Precipitous drop in hematocrit (principal)
CPT/HCPCS: 36415; 85025

== ENCOUNTER → 2024-09-17 12:31 | Outpatient (REF) | payer MEDICARE, OTHER, SELFPAY | LOC: RAD 12:31 | PROVIDERS: ATTENDING PHYSICIAN Internal Medicine Cardiovascular Disease; FAMILY PHYSICIAN Physician Assistant Medical | DX: I31.39 Other pericardial effusion (noninflammatory) (principal) | CPT/HCPCS: 71046 ==

== ENCOUNTER → 2024-11-28 14:50 | Outpatient (REF) | payer MEDICARE, OTHER, SELFPAY ==
[2024-11-28 15:44] LABS: % Basophils 0.5 % (0-2); % Eosinophils 1.7 % (0-6); % Immature Granulocytes 0.3 % (0-0.5); % Lymphocytes 23.8 % (20.5-51.1); % Monocytes 9.2 % (1.7-9.3); % Neutrophils 64.5 % (42.2-75.2); Absolute Eosinophils 0.1 10^3/uL (0-0.7); Absolute Lymphocytes 1.5 10^3/uL (1.2-3.4); Absolute Monocytes 0.6 10^3/uL (0.1-0.6); Absolute Neutrophils 4.1 10^3/uL (1.4-6.5); Hematocrit 40.8 % (37.0-47.0); Hemoglobin 13.4 g/dL (12.0-16.0); Mean Corp Hgb Conc. 32.8 g/dL (33.0-37.0); Mean Corpuscular Hgb 30.6 pg (27.0-31.0); Mean Corpuscular Volume 93.2 fL (81.0-99.0); Mean Platelet Volume 8.4 fL (7.4-10.4); Nucleated Red Blood Cells % 0 %; Platelet Count 254 10^3/uL (130-400); Red Blood Cell Count 4.38 10^6/uL (4.20-5.40); Red Cell Dist. Width 12.9 % (11.5-14.5); White Blood Cell Count 6.3 10^3/uL (4.8-10.8)
== END ==
LOC: REG 14:50
PROVIDERS: ATTENDING PHYSICIAN Physician Assistant Medical
DX: I10 Essential (primary) hypertension (principal); R79.89 Other specified abnormal findings of blood chemistry
CPT/HCPCS: 36415; 85025

== ENCOUNTER → 2025-02-12 08:28 | Outpatient (REF) | payer MEDICARE, OTHER, SELFPAY ==
[2025-02-12 09:14] LABS: Urine Albumin Negative (Neg - Trace); Urine Bilirubin Negative (Negative); Urine Character Clear (Clear); Urine Color Yellow; Urine Glucose Negative (Negative); Urine Ketone Negative (Negative); Urine Leukocyte Negative (Negative); Urine Nitrite Negative (Negative); Urine Occult Blood Negative (Negative); Urine Specific Gravity 1.005 (<1.030); Urine Urobilinogen Negative (Neg - 1+)
[2025-02-12 09:16] LABS: % Basophils 0.8 % (0-2); % Eosinophils 1.9 % (0-6); % Immature Granulocytes 0.2 % (0-0.5); % Lymphocytes 25.9 % (20.5-51.1); % Neutrophils 59.2 % (42.2-75.2); Absolute Eosinophils 0.1 10^3/uL (0-0.7); Absolute Lymphocytes 1.2 10^3/uL (1.2-3.4); Absolute Monocytes 0.6 10^3/uL (0.1-0.6); Absolute Neutrophils 2.8 10^3/uL (1.4-6.5); Hematocrit 39.5 % (37.0-47.0); Hemoglobin 13.3 g/dL (12.0-16.0); Mean Corp Hgb Conc. 33.7 g/dL (33.0-37.0); Mean Corpuscular Hgb 30.7 pg (27.0-31.0); Mean Corpuscular Volume 91.2 fL (81.0-99.0); Mean Platelet Volume 8.5 fL (7.4-10.4); Nucleated Red Blood Cells % 0 %; Platelet Count 256 10^3/uL (130-400); Red Blood Cell Count 4.33 10^6/uL (4.20-5.40); Red Cell Dist. Width 12.2 % (11.5-14.5); White Blood Cell Count 4.7 10^3/uL (4.8-10.8)
[2025-02-12 09:40] LABS: C-Reactive Protein < 5.00 mg/L (0.0-10.00)
[2025-02-12 09:44] LABS: ALT (SGPT) 23 U/L (0-35); Albumin 4.9 g/dl (3.5-5.0); Alkaline Phosphatase 35 U/L (38-126); Calcium 10.5 mg/dl (8.4-10.2); Carbon Dioxide 28 mmol/L (22-30); Chloride 106 mmol/L (98-107); Potassium 4.1 mmol/L (3.5-5.1); Sodium 141 mmol/L (135-145); Total Protein 7.5 g/dl (6.3-8.2)
[2025-02-12 09:57] LABS: AST (SGOT) 26 U/L (14-36); Blood Urea Nitrogen 28 mg/dl (7-17); Glucose 93 mg/dl (70-99); Total Bilirubin 0.6 mg/dl (0.2-1.3); eGFR 33.63
[2025-02-12 12:16] LABS: Erythrocyte Sed Rate 7 mm/hour (0-20)
[2025-02-13 01:46] LABS: Complement C3 95 mg/dl (88-165)
[2025-02-14 01:41] LABS: ds-DNA Ab, IgG Reflex To Titer 7 IU (0-24)
== END ==
LOC: REG 08:28
PROVIDERS: ATTENDING PHYSICIAN Physician Assistant Medical; OTHER PHYSICIAN Internal Medicine Cardiovascular Disease; OTHER PHYSICIAN Internal Medicine Rheumatology; OTHER PHYSICIAN Physician Assistant
DX: I10 Essential (primary) hypertension (principal); R79.89 Other specified abnormal findings of blood chemistry; I73.00 Raynaud's syndrome without gangrene; J90 Pleural effusion, not elsewhere classified; M19.041 Primary osteoarthritis, right hand; M35.00 Sjogren syndrome, unspecified; M81.0 Age-related osteoporosis without current pathological fracture; Z15.89 Genetic susceptibility to other disease
CPT/HCPCS: 36415; 80053; 81003; 85025; 85652; 86140; 86160; 86225

== ENCOUNTER → 2025-02-18 09:16 | Outpatient (REF) | payer MEDICARE, OTHER, SELFPAY ==
[2025-02-18 10:23] LABS: % Basophils 0.5 % (0-2); % Eosinophils 0.8 % (0-6); % Immature Granulocytes 0.5 % (0-0.5); % Lymphocytes 19.9 % (20.5-51.1); % Monocytes 9.9 % (1.7-9.3); % Neutrophils 68.4 % (42.2-75.2); Absolute Eosinophils 0.1 10^3/uL (0-0.7); Absolute Lymphocytes 1.7 10^3/uL (1.2-3.4); Absolute Monocytes 0.9 10^3/uL (0.1-0.6); Absolute Neutrophils 5.9 10^3/uL (1.4-6.5); Hematocrit 41.4 % (37.0-47.0); Hemoglobin 13.8 g/dL (12.0-16.0); Mean Corp Hgb Conc. 33.3 g/dL (33.0-37.0); Mean Corpuscular Hgb 30.7 pg (27.0-31.0); Mean Platelet Volume 8.3 fL (7.4-10.4); Nucleated Red Blood Cells % 0 %; Platelet Count 290 10^3/uL (130-400); Red Cell Dist. Width 12.8 % (11.5-14.5); White Blood Cell Count 8.6 10^3/uL (4.8-10.8)
[2025-02-18 11:06] LABS: ALT (SGPT) 26 U/L (0-35); AST (SGOT) 24 U/L (14-36); Albumin 5.1 g/dl (3.5-5.0); Alkaline Phosphatase 36 U/L (38-126); Blood Urea Nitrogen 19 mg/dl (7-17); Calcium 10.5 mg/dl (8.4-10.2); Carbon Dioxide 26 mmol/L (22-30); Chloride 103 mmol/L (98-107); Glucose 88 mg/dl (70-99); HDL Cholesterol 90 mg/dl; LDL Cholesterol, Calculated 91 mg/dl; Potassium 4.9 mmol/L (3.5-5.1); Sodium 138 mmol/L (135-145); Total Bilirubin 0.9 mg/dl (0.2-1.3); Total Cholesterol 192 mg/dl (50-199); Total Protein 7.5 g/dl (6.3-8.2); Triglyceride 59 mg/dl (10-149); Very Low Density Lipoprotein 11 mg/dl (0-30); eGFR > 60.00
[2025-02-18 11:09] LABS: TSH 3.29 uIU/ml (0.47-4.68)
== END ==
LOC: REG 09:16
PROVIDERS: ATTENDING PHYSICIAN Physician Assistant Medical; OTHER PHYSICIAN Internal Medicine Rheumatology; REFERRING PHYSICIAN Internal Medicine Cardiovascular Disease
DX: R74.8 Abnormal levels of other serum enzymes (principal); E78.2 Mixed hyperlipidemia; I48.0 Paroxysmal atrial fibrillation; Z79.01 Long term (current) use of anticoagulants; I10 Essential (primary) hypertension; F51.01 Primary insomnia; D72.819 Decreased white blood cell count, unspecified; R79.89 Other specified abnormal findings of blood chemistry
CPT/HCPCS: 36415; 80053; 80061; 84443; 85025

== ENCOUNTER → 2025-03-15 07:05 | Outpatient (REF) | payer MEDICARE, OTHER, SELFPAY | LOC: HWWDC 07:05 | PROVIDERS: ATTENDING PHYSICIAN Physician Assistant Medical | DX: Z12.31 Encounter for screening mammogram for malignant neoplasm of breast (principal) | CPT/HCPCS: 77063; 77067 ==

== ENCOUNTER → 2025-03-18 11:50 | Outpatient (REF) | payer MEDICARE, OTHER, SELFPAY ==
[2025-03-18 12:18] LABS: Ionized Calcium 1.24 mMOL/L (1.15-1.33)
[2025-03-18 14:53] LABS: ALT (SGPT) 36 U/L (0-35); AST (SGOT) 29 U/L (14-36); Albumin 4.7 g/dl (3.5-5.0); Alkaline Phosphatase 31 U/L (38-126); Blood Urea Nitrogen 14 mg/dl (7-17); Calcium 10.1 mg/dl (8.4-10.2); Carbon Dioxide 26 mmol/L (22-30); Chloride 104 mmol/L (98-107); Glucose 89 mg/dl (70-99); Potassium 4.9 mmol/L (3.5-5.1); Sodium 137 mmol/L (135-145); Total Bilirubin 0.6 mg/dl (0.2-1.3); eGFR > 60.00
[2025-03-19 10:48] LABS: Intact PTH 47.5 pg/ml (13.6-85.8)
== END ==
LOC: REG 11:50
PROVIDERS: ATTENDING PHYSICIAN Physician Assistant Medical
DX: E83.52 Hypercalcemia (principal)
CPT/HCPCS: 36415; 80053; 82330; 83970

== ENCOUNTER → 2025-07-15 10:33 | Outpatient (REF) | payer MEDICARE, OTHER, SELFPAY ==
[2025-07-15 11:34] LABS: Hematocrit 41.7 % (37.0-47.0); Hemoglobin 13.5 g/dL (12.0-16.0); Mean Corp Hgb Conc. 32.4 g/dL (33.0-37.0); Mean Corpuscular Volume 96.5 fL (81.0-99.0); Nucleated Red Blood Cells % 0 %; Platelet Count 246 10^3/uL (130-400); Red Cell Dist. Width 12.5 % (11.5-14.5)
[2025-07-15 11:59] LABS: ALT (SGPT) 27 U/L (0-35); AST (SGOT) 26 U/L (14-36); Albumin 4.5 g/dl (3.5-5.0); Alkaline Phosphatase 34 U/L (38-126); Blood Urea Nitrogen 14 mg/dl (7-17); Calcium 10.5 mg/dl (8.4-10.2); Carbon Dioxide 30 mmol/L (22-30); Chloride 104 mmol/L (98-107); Glucose 90 mg/dl (70-99); Potassium 4.7 mmol/L (3.5-5.1); Sodium 137 mmol/L (135-145); Total Protein 7.0 g/dl (6.3-8.2); Very Low Density Lipoprotein 11 mg/dl (0-30); eGFR > 60.00
[2025-07-15 12:01] LABS: Glycohemoglobin (HgbA1c) 5.1 % (4.0-5.9)
[2025-07-15 12:09] LABS: HDL Cholesterol 105 mg/dl; LDL Cholesterol, Calculated 84 mg/dl
[2025-07-15 12:28] LABS: TSH 2.35 uIU/ml (0.47-4.68)
== END ==
LOC: REG 10:33
PROVIDERS: ATTENDING PHYSICIAN Physician Assistant Medical
DX: R73.01 Impaired fasting glucose (principal); F51.01 Primary insomnia; E78.2 Mixed hyperlipidemia; I10 Essential (primary) hypertension; E07.9 Disorder of thyroid, unspecified
CPT/HCPCS: 36415; 80053; 80061; 83036; 84443; 85025

== ENCOUNTER → 2025-08-05 11:11 | Outpatient (REF) | payer MEDICARE, OTHER, SELFPAY ==
[2025-08-05 12:59] LABS: Hematocrit 39.9 % (37.0-47.0); Hemoglobin 13.6 g/dL (12.0-16.0); Mean Corp Hgb Conc. 34.1 g/dL (33.0-37.0); Mean Corpuscular Volume 93.7 fL (81.0-99.0); Nucleated Red Blood Cells % 0 %; Platelet Count 262 10^3/uL (130-400); Red Cell Dist. Width 12.2 % (11.5-14.5)
[2025-08-05 13:27] LABS: Vitamin D, 25-OH*** 77.9 ng/mL (30-80)
[2025-08-05 13:41] LABS: TSH 2.12 uIU/ml (0.47-4.68)
[2025-08-05 13:45] LABS: Ferritin 32.4 ng/ml (11.1-264.0)
== END ==
LOC: REG 11:11
PROVIDERS: ATTENDING PHYSICIAN Dermatology
DX: L65.9 Nonscarring hair loss, unspecified (principal); M81.0 Age-related osteoporosis without current pathological fracture
CPT/HCPCS: 36415; 82306; 82728; 84443; 85025